=== PATIENT | male | born 1945 | race Caucasian/White ===

== ENCOUNTER 2016-09-24 14:51 | Inpatient (IN) | payer BC, OTHER ==
[~2016-09-24] VITALS: Ht 172.7 cm; Wt 113.2 kg
[~2016-09-24 14:51] MED LIST changes: -AMLO-110 PO; -ASPI81CH2 PO; -ATOR-22 PO; -ATOR10TA88 PO; -BIOF500C2; -CHOL100010 PO; -CYAN100020 PO; -FLUT1AER5 INH; -GLC500 PO; -HYDR25TA5 PO; -INSDGIPEN SC; -LANC-333 TOP; -LPD600 PO; -LPT40 PO; -LSN5 PO; -NTRSLP4 SL; -NVLGIPEN SC; -OMEG10007 PO; -PLV75 PO; -TPRSR/50 PO; -VITACAP26
[2016-09-24] MEDS ORDERED: SODIUM CHLORIDE 0.9% 1000ML 1,000 ML IV STA ×2 (15:04→17:20)
--- NOTE | 2016-09-24 15:17 | EMERGENCY ROOM VISIT NOTE ---
History Report prepared by Charity: Miles Pugh Under the Supervision of: Dr. Rainer Crawford D.O. First contact with patient: 15:00 Chief Complaint: REFERRED BY DOCTOR Stated Complaint: HIGH BLOOD SUGAR, KIDNEY PROBELMS, SENT BY History of Present Illness The patient is a 71 year old male who presents to the Emergency Room with complaints of a referral to the ED for acute hyperglycemia. The patient was seeing Dr. Fisher today for a hypertension check up when his BSG was found to be 480. He was also told that there was something wrong with his kidneys. The patient has been experiencing urinary frequency for two weeks. He also complains dry mouth and nausea. He denies any chest pain, shortness of breath, abdominal pain, rashes or skin itchiness. He has not had any recent illness. The patient takes medications for hypertension, which have not been changed recently. The patient did not take his medications today. The patient has a history of Meckel's diverticulitis. He denies tobacco use and rarely drinks alcohol. Source of History: patient Onset: today Position: other (blood glucose) Symptom Intensity: 480 Quality: other (hyerglycemic) Timing: other (acute) Associated Symptoms: + nausea, + urinary symptoms, No SOB, No abdominal pain , No chest pain, No rash Review of Systems See HPI for pertinent positives & negatives. A total of 10 systems reviewed and were otherwise negative. 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 Social History Smoking Status: Never Smoker Alcohol Use: occasionally Marital Status: Housing Status: lives with significant other Occupation Status: retired Current/Historical Medications Scheduled Atorvastatin (Lipitor), 10 MG PO QPM Cholecalciferol (Vitamin D), 3,000 UNIT PO QAM Fexofenadine Hcl (Hoa), 180 MG PO HS Fish Oil ([place]-3), 2 CAP PO QAM Glucosamine-Chondroitin (Osteo Bi-Flex Regular Str), 2 TABS PO QPM Hydrochlorothiazide (Hydrochlorothiazide), 25 MG PO DAILY Allergies Coded Allergies: No Known Allergies (Unverified , 07/08/16) Physical Exam Vital Signs Date Time Temp Pulse Resp B/P Pulse Ox O2 Delivery O2 Flow Rate FiO2 09/24/16 19:42 85 20 156/89 97 Room Air 09/24/16 18:31 90 20 182/97 97 Room Air 09/24/16 17:23 97 20 149/104 97 Room Air 09/24/16 16:13 99 20 154/90 99 Room Air 09/24/16 16:10 103 09/24/16 14:58 37.0 108 20 162/91 91 Room Air Physical Exam GENERAL: Patient is awake, alert, and in no acute distress. Patient is resting comfortably and showing no signs of anxiety EYES: The conjunctivae are clear. The pupils are round and reactive. EARS, NOSE, MOUTH AND THROAT: The nose is without any evidence of any deformity. Mucous membranes are moist tongue is midline NECK: The neck is nontender and supple. RESPIRATORY: Normal respiratory effort is noted there is no evidence of wheezing rhonchi or rales CARDIOVASCULAR: Tachycardic but regular rhythm, no definite murmurs noted to auscultation. GASTROINTESTINAL: The abdomen is soft. Bowel sounds are present in all quadrants. Abdomen is nontender MUSCULOSKELETAL/EXTREMITIES: There is no evidence of gross deformity full range of motion is noted in the hips and shoulders SKIN: There is no obvious evidence of any rash. There are no petechiae, pallor or cyanosis noted. NEUROLOGIC: Patient is awake alert and oriented x3. Medical Decision & Procedures ER Provider Diagnostic Interpretation: X-ray results as stated below per interpretation by me and the radiologist. CHEST ONE VIEW PORTABLE CLINICAL HISTORY: ABDOMINAL PAIN/GI pain COMPARISON STUDY: 04/10/2010 FINDINGS: The bones soft tissues and hemidiaphragms are normal. The cardiomediastinal silhouette is normal. The lungs are clear. The pulmonary vasculature is normal. IMPRESSION: Negative chest. Electronically signed by: Adis Ng M.D. 09/24/2016 3:44 PM Dictated Date/Time: 09/24/2016 3:44 PM Laboratory Results Test 09/24/16 15:35 09/24/16 15:40 Immature Granulocyte % (Auto) 0.3 % White Blood Count 7.90 K/uL (4.8-10.8) Red Blood Count 5.33 M/uL (4.7-6.1) Hemoglobin 17.1 g/dL (14.0-18.0) Hematocrit 46.5 % (42-52) Mean Corpuscular Volume 87.2 fL (80-100) Mean Corpuscular Hemoglobin 32.1 pg (25-34) Mean Corpuscular Hemoglobin Concent 36.8 g/dl (32-36) Platelet Count 166 K/uL (130-400) Mean Platelet Volume 11.9 fL (7.4-10.4) Neutrophils (%) (Auto) 73.0 % Lymphocytes (%) (Auto) 17.7 % Monocytes (%) (Auto) 7.7 % Eosinophils (%) (Auto) 1.0 % Basophils (%) (Auto) 0.3 % Neutrophils # (Auto) 5.77 K/uL (1.4-6.5) Lymphocytes # (Auto) 1.40 K/uL (1.2-3.4) Monocytes # (Auto) 0.61 K/uL (0.11-0.59) Eosinophils # (Auto) 0.08 K/uL (0-0.5) Basophils # (Auto) 0.02 K/uL (0-0.2) Immature Granulocyte # (Auto) 0.02 K/uL (0.00-0.02) Prothrombin Time 10.2 SECONDS (9.0-12.0) Prothromb Time International Ratio 1.0 (0.9-1.1) Activated Partial Thromboplast Time 26.6 SECONDS (21.0-31.0) Partial Thromboplastin Ratio 1.0 Venous Blood pH 7.38 (7.36-7.41) Venous Blood Partial Pressure CO2 43 mmHg (38.0-50.0) Venous Blood Partial Pressure O2 38 mmHg Venous Blood HCO3 25 mmol/L Venous Blood Oxygen Saturation 70.4 % Venous Blood Base Excess -0.3 mmol/L Estimated Average Glucose 255 mg/dl Hemoglobin A1c 10.5 % (4.5-5.6) Magnesium Level 2.0 mg/dl (1.8-2.4) Total Bilirubin 0.7 mg/dl (0.2-1) Direct Bilirubin 0.2 mg/dl (0-0.2) Aspartate Amino Transf (AST/SGOT) 17 U/L (15-37) Alanine Aminotransferase (ALT/SGPT) 36 U/L (12-78) Alkaline Phosphatase 128 U/L (45-117) Total Creatine Kinase 145 U/L (39-308) Creatine Kinase MB 1.8 ng/ml (0.5-3.6) Creatine Kinase MB Ratio 1.2 (0-3.0) Troponin I < 0.015 ng/ml (0-0.045) Total Protein 6.9 gm/dl (6.4-8.2) Albumin 4.0 gm/dl (3.4-5.0) Triglycerides Level 511 mg/dl (0-150) Amylase Level 39 U/L (25-115) Lipase 357 U/L (73-393) Beta-Hydroxybutyric Acid 24.61 mg/dL (0.2-2.81) Thyroid Stimulating Hormone (TSH) 1.300 uIu/ml (0.300-4.500) Free Thyroxine 1.02 ng/dl (0.80-1.60) Urine Color YELLOW Urine Appearance CLEAR (CLEAR) Urine pH 5.0 (4.5-7.5) Urine Specific [place] 1.029 (1.000-1.030) Urine Protein NEG (NEG) Urine Glucose (UA) 3+ (NEG) Urine Ketones 1+ (NEG) Urine Occult Blood NEG (NEG) Urine Nitrite NEG (NEG) Urine Bilirubin NEG (NEG) Urine Urobilinogen NEG (NEG) Urine Leukocyte Esterase NEG (NEG) Laboratory results per my review. Medications Administered Medications (Trade) Dose Ordered Sig/Cynthia Route Start Time Stop Time Status Last Admin Dose Admin Sodium Chloride 1,000 ml @ 999 mls/hr Q1H1M STAT IV 09/24/16 15:04 09/24/16 16:04 DC 09/24/16 15:04 999 MLS/HR Sodium Chloride (Nss 1000ml) 1,000 ml @ 999 mls/hr Q1H1M STAT IV 09/24/16 17:20 09/24/16 18:21 DC 09/24/16 17:20 999 MLS/HR Insulin Human Regular (novoLIN-R U-100 PER UNIT) 10 units NOW STAT IV 09/24/16 17:44 09/24/16 17:45 DC 09/24/16 18:28 10 UNITS Insulin Aspart (novoLOG ASPART) 10 units ONE ONCE SC 09/24/16 19:15 09/24/16 20:48 DC 09/24/16 21:25 10 UNITS Hydralazine HCl (Apresoline Tab) 10 mg 1956 ONCE PO 09/24/16 19:57 09/24/16 21:13 DC 09/24/16 23:18 10 MG ECG Indication: weakness Rate (beats per minute): 93 Rhythm: normal sinus Findings: no acute ischemic change, no ectopy Change: no significant change (07/08/2016) ED Course 1503: The patient was evaluated in room B11b. A complete history and physical examination were performed. 1504: NSS 1000 ml @ 999 mls/hr. 1610: [facility] We discussed medications and outpatient therapy. 1720: NSS 1000 ml @ 999 mls/hr. 1744: Insulin Human Regular 10 units IV. Medical Decision Prior records/ancillary studies reviewed and summarized above. Nursing notes reviewed. The patient's history was concerning for hyperglycemia. Differential diagnosis: Etiologies such as metabolic, infection, hypo/hyperglycemia, electrolyte abnormalities, cardiac sources, intracerebral event, toxicologic, neurologic, as well as others were entertained. The patient is a 71-year-old male who presented to the emergency department for polyuria and polydipsia. The patient presented to his primary care physician for an evaluation and was sent for laboratory studies. He was called and told to go to the emergency department because his blood sugar was elevated as well as his creatinine. I feel that his creatinine elevation is likely secondary to dehydration. He was treated with IV fluids and IV insulin in emergency department. Repeat laboratory studies did show that this hyperglycemia was worsening as well as his elevation in his creatinine was worsening. I discussed the patient's laboratory and radiographic studies with him. I'm unsure of the exact cause of this patient's onset of diabetes at this time but I did discuss his case with the on-call [facility] group. They felt his blood sugar was significantly elevated and he may not be a good candidate for outpatient management of this condition at this time. I agree with this assessment. I discussed the plan with the patient and he was agreeable to further inpatient management. Consults Time Called: 1600 Consulting Physician: [facility] Returned Call: [phone]: Spoke with [facility]. We discussed medications and outpatient therapy. Impression Primary Impression: Hyperglycemia Additional Impressions: INDERJIT (acute kidney injury) Dehydration Scribe Attestation The scribe's documentation has been prepared under my direction and personally reviewed by me in its entirety. I confirm that the note above accurately reflects all work, treatment, procedures, and medical decision making performed by me. Departure Information Dispostion Being Evaluated By Hospitalist Referrals Rainer Fisher M.D. (PCP) Patient Instructions My [facility] Problem Qualifiers
[2016-09-24] MEDS ORDERED: HYDR25TA5 PO (15:38)
--- NOTE | 2016-09-24 15:45 | DIAGNOSTIC IMAGING REPORT ---
CHEST ONE VIEW PORTABLE CLINICAL HISTORY: ABDOMINAL PAIN/GI pain COMPARISON STUDY: 04/10/2010 FINDINGS: The bones soft tissues and hemidiaphragms are normal. The cardiomediastinal silhouette is normal. The lungs are clear. The pulmonary vasculature is normal. IMPRESSION: Negative chest. Electronically signed by: Adis Ng M.D. 09/24/2016 3:44 PM Dictated Date/Time: 09/24/2016 3:44 PM
[2016-09-24 15:47] LABS: VEN BLD GAS O2 SATURATION 70.4 %; VEN BLOOD GAS BASE EXCESS -0.3 mmol/L
[2016-09-24 15:51] LABS: BASO % 0.3 %; BASO ABS # 0.02 K/uL (0-0.2); COMPLETE YES; HEMATOCRIT 46.5 % (42-52); IG% 0.3 %; LYMPH % 17.7 %; MEAN CELL VOLUME 87.2 fL (80-100); MEAN CORPUSCULAR HEMOGLOBIN 32.1 pg (25-34); MEAN CORPUSCULAR HGB CONC 36.8 g/dl (32-36); MEAN PLATELET VOLUME 11.9 fL (7.4-10.4); MONO % 7.7 %; PLATELET COUNT 166 K/uL (130-400); RED BLOOD COUNT 5.33 M/uL (4.7-6.1)
[2016-09-24 16:05] LABS: URINE APPEARANCE CLEAR (CLEAR); URINE BILIRUBIN NEG (NEG); URINE COLOR YELLOW; URINE NITRITE NEG (NEG); URINE SPECIFIC GRAVITY 1.029 (1.000-1.030); UROBILINOGEN NEG (NEG)
[2016-09-24 16:13] LABS: MANUAL MICROSCOPIC REQUIRED? NO; REVIEW REQ? NO
[2016-09-24 16:20] LABS: PROTHROMBIN TIME (PATIENT) 10.2 SECONDS (9.0-12.0)
[2016-09-24] MEDS ORDERED: OMEG10007 PO (16:57)
[2016-09-24] MEDS ORDERED: CHOL100010 PO (16:57)
[2016-09-24 17:34] LABS: ALKALINE PHOSPHATASE 128 U/L (45-117); ALT/SGPT 36 U/L (12-78); AMYLASE 39 U/L (25-115); AST/SGOT 17 U/L (15-37); BETA-HYDROXYBUTYRATE 24.61 mg/dL (0.2-2.81); BLOOD UREA NITROGEN 22 mg/dl (7-18); CALCIUM 9.1 mg/dl (8.5-10.1); CARBON DIOXIDE 21 mmol/L (21-32); CHLORIDE 94 mmol/L (98-107); CKMB/CK RATIO 1.2 (0-3.0); GLUCOSE 715 mg/dl (70-99); SODIUM 134 mmol/L (136-145)
[2016-09-24] MEDS ORDERED: NovoLIN-R INSULIN PER UNIT CHARGE IV STA (17:44)
[2016-09-24] MEDS ORDERED: ATOR10TA88 PO (17:56)
--- NOTE | 2016-09-24 18:23 | History and Physical ---
History & Physical Date & Time of Service: Sep 24, 2016 at 18:19 Chief Complaint: High Blood Sugar, Kidney Probelms, Sent By Primary Care Physician: Rainer Fisher M.D. History of Present Illness Source: patient, partner Pt is a 71M with a PMHx of Diverticulosis, HLD, HTN and pericarditis that presents from his PCPs office (Dr. Fisher) after an incidental finding of BS >400. The patient presented for a BP check to Dr. Fisher's office. Patient states that over the past two weeks his only complaint was that he's been feeling thirsty and has been drinking COKE to quench his thirst. Chart Review showed an HBA1C in June 2016 of 5.8 and a normal blood sugar in early July 2016. Pt denies any history of diabetes or elevated blood sugar. is at bedside, reports no changes in mental status. ROS: Denies cough, SOB, chest pain, blurry vision, tingling in his LE, gait issues. Pt reports ganing 40lbs since march after quitting tobacco. PMHx/PSHx: Surgical bowel resection for diverticulitis, costochondritis, HLD, HTN. 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 Past Medical/Surgical History Medical Problems: (1) DIVERTICULOSIS COLON (W/O MENT OF HEMORRHAGE) Status: Chronic (2) HYPERLIPIDEMIA NEC/NOS Status: Chronic (3) HYPERTENSION NOS Status: Chronic Family History Patient reports no known family medical history. Social History Smoking Status: Never Smoker Marital Status: Housing status: lives with family Occupational Status: retired Immunizations History of Influenza Vaccine: Yes Influenza Vaccine Date: May 28, 2012 History of Tetanus Vaccine?: UTD History of Pneumococcal: Yes Pneumococcal Date: May 12, 2011 History of Hepatitis B Vaccine: No Multi-Drug Resistant Organisms History of MDRO: No Allergies Coded Allergies: No Known Allergies (Unverified , 07/08/16) Home Medications Scheduled Atorvastatin (Lipitor), 10 MG PO QPM Cholecalciferol (Vitamin D), 3,000 UNIT PO QAM Fexofenadine Hcl (Hoa), 180 MG PO HS Fish Oil ([place]-3), 2 CAP PO QAM Glucosamine-Chondroitin (Osteo Bi-Flex Regular Str), 2 TABS PO QPM Hydrochlorothiazide (Hydrochlorothiazide), 25 MG PO DAILY Review of Systems Constitutional: No chills, No fever Respiratory: No cough, No shortness of breath, No sputum Abdomen: No constipation, No diarrhea, No nausea, No pain, No vomiting Musculoskeletal: No muscle pain Psychiatric: No depression symptoms Physical Exam Vital Signs Date Time Temp Pulse Resp B/P Pulse Ox O2 Delivery O2 Flow Rate FiO2 09/24/16 17:23 97 20 149/104 97 Room Air 09/24/16 16:13 99 20 154/90 99 Room Air 09/24/16 16:10 103 09/24/16 14:58 37.0 108 20 162/91 91 Room Air General Appearance: WD/WN, + obese Respiratory/Chest: chest non-tender, lungs clear, normal breath sounds, no respiratory distress, no accessory muscle use Cardiovascular: regular rate, rhythm, no edema, no gallop, no JVD, no murmur, normal peripheral pulses Abdomen/GI: normal bowel sounds, non tender, soft, no organomegaly, no pulsatile mass Extremities/Musculoskelatal: normal inspection, no calf tenderness, normal capillary refill, no pedal edema Neurologic/Psych: alert, normal mood/affect, normal reflexes, oriented x 3 Diagnostics Laboratory Results Results Past 24 Hours Test 09/24/16 15:00 09/24/16 15:35 09/24/16 15:40 Range/Units Bedside Glucose > 600 70-99 mg/dl White Blood Count 7.90 4.8-10.8 K/uL Red Blood Count 5.33 4.7-6.1 M/uL Hemoglobin 17.1 14.0-18.0 g/dL Hematocrit 46.5 42-52 % Mean Corpuscular Volume 87.2 80-100 fL Mean Corpuscular Hemoglobin 32.1 25-34 pg Mean Corpuscular Hemoglobin Concent 36.8 32-36 g/dl Platelet Count 166 130-400 K/uL Mean Platelet Volume 11.9 7.4-10.4 fL Neutrophils (%) (Auto) 73.0 % Lymphocytes (%) (Auto) 17.7 % Monocytes (%) (Auto) 7.7 % Eosinophils (%) (Auto) 1.0 % Basophils (%) (Auto) 0.3 % Neutrophils # (Auto) 5.77 1.4-6.5 K/uL Lymphocytes # (Auto) 1.40 1.2-3.4 K/uL Monocytes # (Auto) 0.61 0.11-0.59 K/uL Eosinophils # (Auto) 0.08 0-0.5 K/uL Basophils # (Auto) 0.02 0-0.2 K/uL RDW Standard Deviation 41.1 36.4-46.3 fL RDW Coefficient of Variation 12.9 11.5-14.5 % Immature Granulocyte % (Auto) 0.3 % Immature Granulocyte # (Auto) 0.02 0.00-0.02 K/uL Prothrombin Time 10.2 9.0-12.0 SECONDS Prothromb Time International Ratio 1.0 0.9-1.1 Activated Partial Thromboplast Time 26.6 21.0-31.0 SECONDS Partial Thromboplastin Ratio 1.0 Venous Blood pH 7.38 7.36-7.41 Venous Blood Partial Pressure CO2 43 38.0-50.0 mmHg Venous Blood Partial Pressure O2 38 mmHg Venous Blood HCO3 25 mmol/L Venous Blood Oxygen Saturation 70.4 % Venous Blood Base Excess -0.3 mmol/L Sodium Level 134 136-145 mmol/L Chloride Level 94 98-107 mmol/L Carbon Dioxide Level 21 21-32 mmol/L Anion Gap 19.0 3-11 mmol/L Blood Urea Nitrogen 22 7-18 mg/dl Creatinine 1.70 0.60-1.40 mg/dl Est Creatinine Clear Calc Drug Dose 47.2 ml/min Estimated GFR () 45.4 Estimated GFR (Non- 39.1 BUN/Creatinine Ratio 13.0 10-20 Random Glucose 715 70-99 mg/dl Calcium Level 9.1 8.5-10.1 mg/dl Magnesium Level 2.0 1.8-2.4 mg/dl Total Bilirubin 0.7 0.2-1 mg/dl Direct Bilirubin 0.2 0-0.2 mg/dl Aspartate Amino Transf (AST/SGOT) 17 15-37 U/L Alanine Aminotransferase (ALT/SGPT) 36 12-78 U/L Alkaline Phosphatase 128 45-117 U/L Total Creatine Kinase 145 39-308 U/L Creatine Kinase MB 1.8 0.5-3.6 ng/ml Creatine Kinase MB Ratio 1.2 0-3.0 Troponin I < 0.015 0-0.045 ng/ml Total Protein 6.9 6.4-8.2 gm/dl Albumin 4.0 3.4-5.0 gm/dl Triglycerides Level 511 0-150 mg/dl Amylase Level 39 25-115 U/L Lipase 357 73-393 U/L Beta-Hydroxybutyric Acid 24.61 0.2-2.81 mg/dL Thyroid Stimulating Hormone (TSH) 1.300 0.300-4.500 uIu/ml Free Thyroxine 1.02 0.80-1.60 ng/dl Urine Color YELLOW Urine Appearance CLEAR CLEAR Urine pH 5.0 4.5-7.5 Urine Specific [place] 1.029 1.000-1.030 Urine Protein NEG NEG Urine Glucose (UA) 3+ NEG Urine Ketones 1+ NEG Urine Occult Blood NEG NEG Urine Nitrite NEG NEG Urine Bilirubin NEG NEG Urine Urobilinogen NEG NEG Urine Leukocyte Esterase NEG NEG Diagnostic Radiology CHEST ONE VIEW PORTABLE CLINICAL HISTORY: ABDOMINAL PAIN/GI pain COMPARISON STUDY: 04/10/2010 FINDINGS: The bones soft tissues and hemidiaphragms are normal. The cardiomediastinal silhouette is normal. The lungs are clear. The pulmonary vasculature is normal. IMPRESSION: Negative chest. EKG Normal sinus rhythm Normal ECG When compared with ECG of 08-JUL-2016 17:07, Vent. rate has increased BY 34 BPM Impression Assessment and Plan 71M with a PMHx of Diverticulosis, HLD, HTN and viral pericarditis was sent from his PCPs office (Dr. Fisher) after an incidental finding of BS >400 and elevated creatinine. In the ER BS was >700 and creatinine was found to be 1.7 ( baseline 1.1). Patient was started on Lantus 15units daily and Novolog 1unit: 9carb ratio, +SS of 40 units within the range of 140 to 180. s/p 2L NSS bolus in the ER. Hyperosmolar Hyperglycemic State vs DKA 2/2 pt drinking cola to correct his thirst - No history of DM2, not on DM meds at home. HBA1C in June 2016 was 5.8, because of the acute onset nature of this hyperglycemia, we expect quick correction. - Lantus 15units daily and Novolog 1unit:9carb ratio, +SS of 40 units within the range of 140 to 180. - HBA1C pending. Acute Renal Failure Creatinine 1.7 now, baseline is 1.1. Will rehydrate at half normal saline + 20meq KCL at 150ml/hr. Monitor daily BMPs. HTN hold HCTZ Hydralazine 10mg stat, TID PRN if SBP>160 or DBP >100. Continue to monitor. HLD c.w Atorvastatin 10mg c.w Fexofenadine DVT Proph:Lovenox SQ Dispo: Tele, DM2 diet, FULL CODE. Resident Physician Supervision Note: I interviewed and examined the patient. Discussed with Dr. Norman and agree with findings and plan as documented in the note. Any exceptions or clarifications are listed here: None Documented By: Bobo Reyes polydipsia, polyuria for several weeks. gained ~40lbs over the fall; has had recent weight loss during time of polyuria though ros otherwise negative except for as above vitals noted, nad breathing unlabored, no pallor or icterus. labs reviewed. 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 (low threshold to CT eval pancreas if doesn't improve quickly) -for now manage w insulin given ARF, but if continues to behave as a type 2, then will hopefully be able to start metformin once Cr improved -educated on basics, but definitely will need ongoing DM education both from physicians and from RN educator -await A1c - also quite possible that acute highs were from trying to treat dehydration from different cause with soda - creating vicious cycle of worsening dehydration --> hyperglycemia ARF - from hyperglycemic dehydration - fluids, sugar control DVT proph - lovenox HTN - for now hydralazine prn until renal failure corrected otherwise as above Resident Involvement: Resident Care Provided Care Provided: Adult Hospital Medicine
[2016-09-24 18:30] LABS: POTASSIUM 4.6 mmol/L (3.5-5.1)
[2016-09-24] MEDS ORDERED: INSULIN GLARGINE PER UNIT 15 UNITS in SYRINGE 0 ML SC STA (19:09)
[2016-09-24] MEDS ORDERED: POLYETHYLENE (MIRALAX) 17 GM PACK PO PRN (19:15)
[2016-09-24] MEDS ORDERED: ACETAMINOPHEN 325 MG TAB PO PRN (19:15)
[2016-09-24] MEDS ORDERED: INSULIN ASPART 100 UNITS/ML 3 ML PEN SC ONE (19:15)
[2016-09-24] MEDS ORDERED: MAGNESIUM HYDROXIDE SUSP 30 ML UDC PO PRN (19:15)
[2016-09-24] MEDS ORDERED: ONDANSETRON INJ 2 MG/ML 2 ML VIAL IV PRN (19:15)
[2016-09-24] MEDS ORDERED: ALUMINUM/MAGNESIUM/SIMETH (MAALOX MAX) 30 ML UDC PO PRN (19:15)
[2016-09-24] MEDS ORDERED: HydrALAZINE 10 MG TAB PO ONE (19:57)
[2016-09-24] MEDS ORDERED: HydrALAZINE 10 MG TAB PO PRN (20:00)
[2016-09-24] MEDS ORDERED: LANTUS PER UNIT CHARGE SQ ONE (21:15)
[2016-09-24] MEDS: INSULIN ASPART 100 UNITS/ML 3 ML PEN SC SCH (23:08)
[2016-09-24] MEDS: FEXOFENADINE HCL 180 MG TAB PO SCH (23:18)
[2016-09-24] MEDS: ATORVASTATIN 10 MG TAB PO SCH (23:19)
[2016-09-24] MEDS: ENOXAPARIN 40 MG/0.4 ML SYR SC SCH (23:20)
[2016-09-24] MEDS: SODIUM CHLOR 0.45% + 20MEQ KCL 1,000 ML IV SCH (23:21)
[2016-09-25] VITALS (12 sets, daily range): BP systolic 111–157; BP diastolic 51–87; PULSE 62–78; TEMP 36.4–36.7; O2SAT 93–96; BMI 39.2; BMI 39.6
[2016-09-25] MEDS ORDERED: NURSING VERBAL MED ORDER ONE (00:45)
[2016-09-25] MEDS ORDERED: INSULIN ASPART 100 UNITS/ML 3 ML PEN SC SCH (02:00)
[2016-09-25] MEDS: SODIUM CHLOR 0.45% + 20MEQ KCL 1,000 ML IV SCH ×2 (06:12→14:07)
[2016-09-25 06:24] LABS: ESTIMATED AVERAGE GLUCOSE 255 mg/dl; HA1C FLAG Normal (Normal)
[2016-09-25 06:30] LABS: HEMATOCRIT 39.7 % (42-52); MEAN CELL VOLUME 86.7 fL (80-100); MEAN CORPUSCULAR HEMOGLOBIN 31.2 pg (25-34); MEAN PLATELET VOLUME 11.7 fL (7.4-10.4); PLATELET COUNT 125 K/uL (130-400); RED BLOOD COUNT 4.58 M/uL (4.7-6.1)
[2016-09-25 06:52] LABS: BUN/CREATININE RATIO 15.3 (10-20); CALCIUM 8.1 mg/dl (8.5-10.1); POTASSIUM 3.6 mmol/L (3.5-5.1)
[2016-09-25] MEDS: OMEGA-3 (PURIFIED FISH OIL) 1 GM CAP PO SCH (07:59)
[2016-09-25] MEDS: CHOLECALCIFEROL 1000 INTER.UNIT TAB PO SCH (07:59)
[2016-09-25] MEDS: INSULIN ASPART 100 UNITS/ML 3 ML PEN SC SCH ×4 (08:00→21:30)
--- NOTE | 2016-09-25 14:56 | Progress Note ---
Subjective Date of Service: Sep 25, 2016. Subjective Pt evaluation today including: conversation w/ patient, conversation w/ family , physical exam, chart review, lab review, review of studies, conversation w/ financial services consultant, review of inpatient medication list Pleasant, conversational, out of bed to chair, no chest pain, nurse reported blood glucose at around 300 Problem List Medical Problems: (1) INDERJIT (acute kidney injury) Status: Acute (2) Dehydration Status: Acute (3) Hyperglycemia Status: Acute (4) Hypertension Status: Acute Review of Systems Constitutional: No chills, No fatigue, No fever, No problem reported, No sweats , No weakness, No weight loss Eyes: No diplopia, No discharge, No eye pain, No redness, No worsening of vision ENT: No dental problems, No hearing loss, No nasal symptoms, No sore throat, No tinnitus, No trouble swallowing, No unusual epistaxis Respiratory: No cough, No dyspnea at rest, No dyspnea on exertion, No hemoptysis, No shortness of breath, No sputum, No wheezing Cardiac: No PND, No chest pain, No claudication, No edema, No orthopnea, No palpitations Abdomen: No constipation, No diarrhea, No nausea, No pain, No vomiting Musculoskeletal: No calf pain, No joint pain, No muscle pain, No swelling Male : No dysuria, No hematuria, No incontinence, No nocturia more than once/ night, No slowing stream, No urinary frequency Neurologic: No balance problems, No memory loss, No numbness/tingling, No paralysis, No vertigo, No weakness Psychiatric: No anhedonism, No anxiety, No depression symptoms, No insomnia, No substance abuse Heme: No abnormal bleeding/bruising, No clotting problems, No night sweats, No swollen lymph nodes Endo: No excessive thirst, No excessive urination, No fatigue Skin: No bleeding, No color change, No itch, No new/changing skin lesions, No rash Objective Vital Signs Date Time Temp Pulse Resp B/P Pulse Ox O2 Delivery O2 Flow Rate FiO2 09/25/16 12:00 96 Room Air 09/25/16 11:30 36.6 62 20 138/71 96 Room Air 09/25/16 08:59 36.7 72 18 144/70 94 Room Air 09/25/16 08:00 95 Room Air 09/25/16 08:00 Room Air 09/25/16 07:38 36.4 65 16 157/87 95 Room Air 09/25/16 04:00 Room Air 09/25/16 04:00 36.6 70 18 122/51 95 Room Air 09/25/16 03:59 60 09/25/16 00:11 74 09/25/16 00:00 36.7 78 18 111/71 93 Room Air 09/24/16 21:27 98 20 156/89 99 09/24/16 20:08 97 09/24/16 19:42 85 20 156/89 97 Room Air 09/24/16 18:31 90 20 182/97 97 Room Air 09/24/16 17:23 97 20 149/104 97 Room Air 09/24/16 16:13 99 20 154/90 99 Room Air 09/24/16 16:10 103 09/24/16 14:58 37.0 108 20 162/91 91 Room Air Physical Exam General Appearance: WD/WN, no apparent distress, + obese Eyes: normal inspection, PERRL, EOMI, sclerae normal ENT: normal ENT inspection, hearing grossly normal, pharynx normal Neck: supple, no adenopathy, thyroid normal, no JVD, no carotid bruits, trachea midline Respiratory/Chest: chest non-tender, lungs clear, normal breath sounds, no respiratory distress, no accessory muscle use Cardiovascular: regular rate, rhythm, no edema, no gallop, no JVD, no murmur Abdomen: normal bowel sounds, non tender, soft, no organomegaly, no pulsatile mass Extremities: normal range of motion, non-tender, normal inspection, no pedal edema, no calf tenderness, normal capillary refill, pelvis stable Neurologic/Psychiatric: group burner machine II-XII nml as tested, no motor/sensory deficits, alert, normal mood/affect, oriented x 3 Skin: normal color, warm/dry, no rash Lymphatic: no adenopathy Laboratory Results Last 24 Hours Test 09/24/16 15:00 09/24/16 15:35 09/24/16 15:40 09/24/16 19:45 Bedside Glucose > 600 mg/dl 432 mg/dl White Blood Count 7.90 K/uL Red Blood Count 5.33 M/uL Hemoglobin 17.1 g/dL Hematocrit 46.5 % Mean Corpuscular Volume 87.2 fL Mean Corpuscular Hemoglobin 32.1 pg Mean Corpuscular Hemoglobin Concent 36.8 g/dl Platelet Count 166 K/uL Mean Platelet Volume 11.9 fL Neutrophils (%) (Auto) 73.0 % Lymphocytes (%) (Auto) 17.7 % Monocytes (%) (Auto) 7.7 % Eosinophils (%) (Auto) 1.0 % Basophils (%) (Auto) 0.3 % Neutrophils # (Auto) 5.77 K/uL Lymphocytes # (Auto) 1.40 K/uL Monocytes # (Auto) 0.61 K/uL Eosinophils # (Auto) 0.08 K/uL Basophils # (Auto) 0.02 K/uL RDW Standard Deviation 41.1 fL RDW Coefficient of Variation 12.9 % Immature Granulocyte % (Auto) 0.3 % Immature Granulocyte # (Auto) 0.02 K/uL Prothrombin Time 10.2 SECONDS Prothromb Time International Ratio 1.0 Activated Partial Thromboplast Time 26.6 SECONDS Partial Thromboplastin Ratio 1.0 Venous Blood pH 7.38 Venous Blood Partial Pressure CO2 43 mmHg Venous Blood Partial Pressure O2 38 mmHg Venous Blood HCO3 25 mmol/L Venous Blood Oxygen Saturation 70.4 % Venous Blood Base Excess -0.3 mmol/L Sodium Level 134 mmol/L Potassium Level 4.6 mmol/L Chloride Level 94 mmol/L Carbon Dioxide Level 21 mmol/L Anion Gap 19.0 mmol/L Blood Urea Nitrogen 22 mg/dl Creatinine 1.70 mg/dl Est Creatinine Clear Calc Drug Dose 47.2 ml/min Estimated GFR () 45.4 Estimated GFR (Non- 39.1 BUN/Creatinine Ratio 13.0 Random Glucose 715 mg/dl Estimated Average Glucose 255 mg/dl Hemoglobin A1c 10.5 % Calcium Level 9.1 mg/dl Magnesium Level 2.0 mg/dl Total Bilirubin 0.7 mg/dl Direct Bilirubin 0.2 mg/dl Aspartate Amino Transf (AST/SGOT) 17 U/L Alanine Aminotransferase (ALT/SGPT) 36 U/L Alkaline Phosphatase 128 U/L Total Creatine Kinase 145 U/L Creatine Kinase MB 1.8 ng/ml Creatine Kinase MB Ratio 1.2 Troponin I < 0.015 ng/ml Total Protein 6.9 gm/dl Albumin 4.0 gm/dl Triglycerides Level 511 mg/dl Amylase Level 39 U/L Lipase 357 U/L Beta-Hydroxybutyric Acid 24.61 mg/dL Thyroid Stimulating Hormone (TSH) 1.300 uIu/ml Free Thyroxine 1.02 ng/dl Urine Color YELLOW Urine Appearance CLEAR Urine pH 5.0 Urine Specific [place] 1.029 Urine Protein NEG Urine Glucose (UA) 3+ Urine Ketones 1+ Urine Occult Blood NEG Urine Nitrite NEG Urine Bilirubin NEG Urine Urobilinogen NEG Urine Leukocyte Esterase NEG Test 09/24/16 23:05 09/25/16 02:03 09/25/16 05:54 09/25/16 07:27 Bedside Glucose 385 mg/dl 228 mg/dl 214 mg/dl White Blood Count 5.70 K/uL Red Blood Count 4.58 M/uL Hemoglobin 14.3 g/dL Hematocrit 39.7 % Mean Corpuscular Volume 86.7 fL Mean Corpuscular Hemoglobin 31.2 pg Mean Corpuscular Hemoglobin Concent 36.0 g/dl RDW Standard Deviation 40.7 fL RDW Coefficient of Variation 12.8 % Platelet Count 125 K/uL Mean Platelet Volume 11.7 fL Sodium Level 143 mmol/L Potassium Level 3.6 mmol/L Chloride Level 108 mmol/L Carbon Dioxide Level 24 mmol/L Anion Gap 11.0 mmol/L Blood Urea Nitrogen 15 mg/dl Creatinine 1.00 mg/dl Est Creatinine Clear Calc Drug Dose 82.1 ml/min Estimated GFR () 86.2 Estimated GFR (Non- 74.3 BUN/Creatinine Ratio 15.3 Random Glucose 206 mg/dl Calcium Level 8.1 mg/dl Test 09/25/16 11:32 Bedside Glucose 297 mg/dl Assessment and Plan 71-year-old white male, admitted on 09/24/2016 because of new onset DM and acute renal failure Uncontrolled diabetic with HbA1c on 10.5, with newly identified Likely is type II diabetic Has extensive diabetic education, started Lantus 15 units subcutaneous daily at bedtime, and insulin sliding scale with correction factors and card count Discussed with the patient's and daughter about the importance of diabetic control Acute renal failure because of dehydration's from polyuria Totally resolved, Will follow-up Hypertriglyceridemia, tg > 500 upon admission, he was not fasting Will check fasting lipid panel tomorrow Has consult of lifestyle modification, start Lopid if repeated triglycerides IS still high DVT proph - lovenox Continued [facility] stay due to: home environment unsafe for pt Discharge planning: home
[2016-09-25] MEDS ORDERED: GLUCAGON FOR INJ 1 MG VIAL SQ PRN (15:00)
[2016-09-25] MEDS ORDERED: DEXTROSE 50% 50 ML SYR IV PRN (15:00)
[2016-09-25] MEDS ORDERED: GLUCOSE 10 TABS/TUBE PO PRN (15:00)
[2016-09-25] MEDS ORDERED: GLUCOSE 40% GEL 15 GM TUBE PO PRN (15:00)
[2016-09-25] MEDS ORDERED: INSULIN GLARGINE SOLOSTAR 100 UNITS/ML 3 ML PEN SC SCH (21:00)
[2016-09-25] MEDS: FEXOFENADINE HCL 180 MG TAB PO SCH (21:33)
[2016-09-25] MEDS: ATORVASTATIN 10 MG TAB PO SCH (21:33)
[2016-09-25] MEDS: ENOXAPARIN 40 MG/0.4 ML SYR SC SCH (21:34)
[2016-09-26 04:05] VITALS: BP 113/84; PULSE 68; TEMP 36.4; O2SAT 95
[2016-09-26 05:54] LABS: HEMATOCRIT 42.2 % (42-52); MEAN CELL VOLUME 85.3 fL (80-100); MEAN CORPUSCULAR HEMOGLOBIN 30.3 pg (25-34); MEAN CORPUSCULAR HGB CONC 35.5 g/dl (32-36); MEAN PLATELET VOLUME 11.3 fL (7.4-10.4); PLATELET COUNT 124 K/uL (130-400); RED BLOOD COUNT 4.95 M/uL (4.7-6.1); WHITE BLOOD COUNT 5.55 K/uL (4.8-10.8)
[2016-09-26 06:20] LABS: BUN/CREATININE RATIO 12.1 (10-20); POTASSIUM 3.7 mmol/L (3.5-5.1)
[2016-09-26 06:35] LABS: CHOLESTEROL/HDL RATIO 6.3
[2016-09-26 07:35] VITALS: BP 146/87; PULSE 71; TEMP 36.5; O2SAT 94
[2016-09-26] MEDS: INSULIN ASPART 100 UNITS/ML 3 ML PEN SC SCH ×2 (07:43→11:41)
[2016-09-26] MEDS: OMEGA-3 (PURIFIED FISH OIL) 1 GM CAP PO SCH (07:44)
[2016-09-26] MEDS: CHOLECALCIFEROL 1000 INTER.UNIT TAB PO SCH (07:45)
[2016-09-26] MEDS ORDERED: INSDGIPEN SC (08:50)
[2016-09-26] MEDS ORDERED: NVLGIPEN SC (08:50)
[2016-09-26] MEDS ORDERED: LPD600 PO (08:50)
[2016-09-26] MEDS ORDERED: LANC-333 TOP (08:50)
[2016-09-26] MEDS ORDERED: GLC500 PO (08:50)
--- NOTE | 2016-09-26 08:52 | Discharge Instructions ---
Discharge Instructions Admission Reason for Admission: Diabetes Mellitus With Hyperosmolarity Without Discharge Discharge Diagnosis / Problem: new dx DM, hyperglycemia Discharge Goals Goal(s): Decrease discomfort, Improve function, Increase independence, Improve disease control, Improve nutritional status, Learn about illness, Diagnostic testing, Therapeutic intervention, Prevent Disease Progression, Specific goals Activity Recommendations Activity Limitations: resume your previous activity Exercise/Sports Limitations: as tolerated May Resume Sexual Activity: when tolerated Driving or Machine Use: no limitations . Instructions / Follow-Up Instructions / Follow-Up you have new diagnosis DM and acute renal failure we had extensive diabetic treatment discussion, started Lantus 15 units subcutaneous daily at bedtime, and insulin sliding scale recommended in below you need to watch for lifestyle I hold your Lipitor, and started Lopid for your hypertriglyceridemia you need to follow up with pcp for all of your medical condition in 3-5 days, SUBCUTANEOUSLY, BEFORE MEALS & AT BEDTIME 0 unit when BG between 130 to 150 1 unit when BG between 151 to 170 2 unit when BG between 171 to 190 3 unit when BG between 191 to 210 4 unit when BG between 210 to 230 5 unit when BG between 231 to 250 6 unit when BG between 251 to 270 8 unit when BG between 271 to 290 10 unit when BG between 291 to 310 12 unit when BG between 331 to 350 14 unit when BG between 351 to 370, and call MD - take medication as instructed, never overdose or any misuse, or take with alcohol, because misuse of medicine may cause organ damage or , call your primary care physician if have questions of medicaitons. - call your primary care physician OR go to local emergency room if has any fever/chill, chest pain, shortness of breathing, nausea/vomiting/abdominal pain , facial droop/slurry speech/local weakness, or if has any questions. - fall precaution - diet as instructed - you should understand that it is important to follow up the above instruction , and "not following the above instruction" may cause delayed or missed care of your medical conditions which may cause permanent organ damage and even . Current Hospital Diet Patient's current hospital diet: Diabetes Type 2 Diet Discharge Diet Recommended Diet: Diabetes Type 2 Diet Pending Studies Studies pending at discharge: no Laboratory Results Hemoglobin A1c Test 09/24/16 15:35 Range/Units Estimated Average Glucose 255 mg/dl Hemoglobin A1c 10.5 H 4.5-5.6 % Lipid Panel Test 09/26/16 05:31 Range/Units Triglycerides Level 638 H 0-150 mg/dl Cholesterol Level 203 H 0-200 mg/dl HDL Cholesterol 32 mg/dl Cholesterol/HDL Ratio 6.3 LDL Cholesterol, Calculated mg/dl Medical Emergencies . Who to Call and When: Medical Emergencies: If at any time you feel your situation is an emergency, please call 911 immediately. . Non-Emergent Contact Non-Emergency issues call your: Primary Care Provider . . "Provider Documentation" section prepared by Mike Tuttle. VTE Core Measure Inpt VTE Proph given/why not?: Enoxaparin (Lovenox)SQ
[2016-09-26] MEDS ORDERED: GEMFIBROZIL 600 MG TAB PO SCH (09:00)
[2016-09-26] MEDS ORDERED: METFORMIN HCL 500 MG TAB PO SCH (09:00)
--- NOTE | 2016-09-26 09:20 | Discharge Summary ---
Discharge Summary Date of Service Sep 26, 2016. Discharge Summary Admission Date: Sep 24, 2016 at 19:57 Discharge Date: Sep 26, 2016 Discharge Disposition: Home Principal Diagnosis: new diagnosed uncontrolled diabetic, Problems/Secondary Diagnoses: Hyperglycemia, acute kidney failure Immunizations: Have You Had Influenza Vaccine: Yes Influenza Vaccine Date: May 28, 2012 History of Tetanus Vaccine?: UTD History of Pneumococcal: Yes Pneumococcal Date: May 12, 2011 History of Hepatitis B Vaccine: No Procedures: No Consultations: No Medication Reconciliation New Medications: Lancets (Freestyle Lancets) 1 Mis Mis 1 EA TOP QID for 90 Days, #400 EA 3 Refills Gemfibrozil (Gemfibrozil) 600 Mg Tab 600 MG PO BID for 30 Days, #60 TAB Insulin Aspart (Novolog Flexpen) 100 Units/Ml Inj 0 UNITS SC ACHS for 30 Days SUBCUTANEOUSLY, BEFORE MEALS & AT BEDTIME 0 unit when BG between 130 to 150 1 unit when BG between 151 to 170 2 unit when BG between 171 to 190 3 unit when BG between 191 to 210 4 unit when BG between 210 to 230 5 unit when BG between 231 to 250 6 unit when BG between 251 to 270 8 unit when BG between 271 to 290 10 unit when BG between 291 to 310 12 unit when BG between 331 to 350 14 unit when BG between 351 to 370, and call Insulin Glargine (Lantus Solostar) 100 Unit/Ml Inj 15 UNIT SC HS for 30 Days Metformin HCl (Metformin HCl) 500 Mg Tab 500 MG PO BIDM for 30 Days, TAB Continued Medications: Cholecalciferol (Vitamin D) 1,000 Unit Tab 3000 UNIT PO QAM Fexofenadine Hcl (Hoa) 180 Mg Tab 180 MG PO HS, TAB Fish Oil ([place]-3) 1 Ea Cap 2 CAP PO QAM, CAP Glucosamine-Chondroitin (Osteo Bi-Flex Regular Str) 1 Tab Tab 2 TABS PO QPM Hydrochlorothiazide (Hydrochlorothiazide) 25 Mg Tab 25 MG PO DAILY, #90 Discontinued Medications: Atorvastatin (Lipitor) 10 Mg Tab 10 MG PO QPM, 0 Refills Discharge Exam Doing well up and walk, eating and drinking okay, no complaining , blood glucose around 200 Review of Systems: Constitutional: No chills, No fatigue, No fever, No problem reported, No sweats, No weakness, No weight loss Eyes: No diplopia, No discharge, No eye pain, No problem reported, No redness, No worsening of vision ENT: No dental problems, No hearing loss, No nasal symptoms, No problem reported, No sore throat, No tinnitus, No trouble swallowing, No unusual epistaxis Respiratory: No cough, No dyspnea at rest, No dyspnea on exertion, No hemoptysis, No problem reported, No shortness of breath, No sputum, No wheezing Cardiovascular: No PND, No chest pain, No claudication, No edema, No orthopnea, No palpitations, No problem reported Abdomen: No GI bleeding, No constipation, No diarrhea, No nausea, No pain, No problem reported, No vomiting Musculoskeletal: No calf pain, No joint pain, No muscle pain, No problem reported, No swelling Genitourinary - Male: No dysuria, No hematuria, No impotence, No lesions, No penile discharge, No problem reported, No urinary frequency, No urinary hesitancy, No urinary incontinence, No urinary retention, No urinary urgency Neurologic: No balance problems, No memory loss, No numbness/tingling, No paralysis, No problem reported, No vertigo, No weakness Psychiatric: No anhedonism, No anxiety, No depression symptoms, No insomnia , No problem reported, No substance abuse Endocrine: No excessive thirst, No excessive urination, No fatigue, No problem reported Integumentary: No bleeding, No color change, No itch, No new/changing skin lesions, No problem reported, No rash Physical Exam: General Appearance: WD/WN, + obese Eyes: normal inspection, PERRL ENT: normal ENT inspection, hearing grossly normal Neck: supple, no adenopathy Respiratory/Chest: chest non-tender, normal breath sounds, no respiratory distress, + decreased breath sounds Cardiovascular: regular rate, rhythm, no edema Abdomen / GI: normal bowel sounds, non tender, soft, no organomegaly Extremities: normal inspection, no calf tenderness, normal capillary refill Neurologic/Psychiatric: healthcare technician II-XII nml as tested, no motor/sensory deficits , alert Skin: normal color, warm/dry Hospital Course 71-year-old white male, admitted on 09/24/2016 because of new onset DM and acute renal failure Uncontrolled diabetic with HbA1c on 10.5, with newly identified Likely is type II diabetic Has extensive diabetic education, started Lantus 15 units subcutaneous daily at bedtime, and insulin sliding scale with correction factors and card count Discussed with the patient's and daughter about the importance of diabetic control Start metformin 500 mg by mouth twice a day because of totally resolved of acute kidney failure and lab has been stable for 2 days I also give introduction of insulin sliding scale and give prescription Acute renal failure because of dehydration's from polyuria Totally resolved, Will follow-up Hypertriglyceridemia, tg > 500 upon admission, he was not fasting Recheck fasting lipid panel which was more than 600 Patient was on Lipitor at home, I hold it for now, start Lopid by mouth twice a day PCP please adjust the medication for dyslipidemia DVT proph - lovenox Instructions / Follow-Up you have new diagnosis DM and acute renal failure we had extensive diabetic treatment discussion, started Lantus 15 units subcutaneous daily at bedtime, and insulin sliding scale recommended in below you need to watch for lifestyle I hold your Lipitor, and started Lopid for your hypertriglyceridemia you need to follow up with pcp for all of your medical condition in 3-5 days, SUBCUTANEOUSLY, BEFORE MEALS & AT BEDTIME 0 unit when BG between 130 to 150 1 unit when BG between 151 to 170 2 unit when BG between 171 to 190 3 unit when BG between 191 to 210 4 unit when BG between 210 to 230 5 unit when BG between 231 to 250 6 unit when BG between 251 to 270 8 unit when BG between 271 to 290 10 unit when BG between 291 to 310 12 unit when BG between 331 to 350 14 unit when BG between 351 to 370, and call MD - take medication as instructed, never overdose or any misuse, or take with alcohol, because misuse of medicine may cause organ damage or , call your primary care physician if have questions of medicaitons. - call your primary care physician OR go to local emergency room if has any fever/chill, chest pain, shortness of breathing, nausea/vomiting/abdominal pain , facial droop/slurry speech/local weakness, or if has any questions. - fall precaution - diet as instructed - you should understand that it is important to follow up the above instruction , and "not following the above instruction" may cause delayed or missed care of your medical conditions which may cause permanent organ damage and even . Total Time Spent: Greater than 30 minutes This includes examination of the patient, discharge planning, medication reconciliation, and communication with other providers. Discharge Instructions Please refer to the electronic Patient Visit Report (Discharge Instructions) for additional information. Additional Copies To Rainer Fisher M.D.
[2016-09-26 11:56] VITALS: BP 146/87; PULSE 71; TEMP 36.5; O2SAT 94
[2016-09-26 12:17] VITALS: Ht 172.7 cm; Wt 113.2 kg
[2017-03-22] MEDS ORDERED: LPT40 PO (11:14)
[2017-03-22] MEDS ORDERED: PLV75 PO (11:14)
[2017-03-22] MEDS ORDERED: LSN5 PO (11:14)
[2017-03-22] MEDS ORDERED: NTRSLP4 SL (11:14)
== END 2016-09-26 12:30 | disposition home or self-care (01) | DRG 682 ==
LOC: ENRESERVDT → ENRESERVTM → C.EDB 14:52 → C.EDINP 19:57 → C.2E 09-25 09:01
PROVIDERS: ADMIT Family Medicine; ATTEND Hospitalist
DX: N17.9 Acute kidney failure, unspecified (principal); E11.00 Type 2 diabetes mellitus with hyperosmolarity without nonketotic hyperglycemic-hyperosmolar coma (NKHHC); E11.65 Type 2 diabetes mellitus with hyperglycemia; E86.0 Dehydration; E78.1 Pure hyperglyceridemia; E78.5 Hyperlipidemia, unspecified; I10 Essential (primary) hypertension; Z79.899 Other long term (current) drug therapy

== ENCOUNTER → 2016-09-24 | Outpatient (CLI) | payer BC ==
[~2016-09-24] MED LIST: AMLO-110 PO; ASPI81CH2 PO; ATOR-22 PO; ATOR10TA88 PO; BIOF500C2; CHOL100010 PO; CYAN100020 PO; FEXO1TAB46 PO; FLUT1AER5 INH; GLC500 PO; GLUCTAB18 PO; HYDR25TA5 PO; INSDGIPEN SC; LANC-333 TOP; LPD600 PO; LPT40 PO; LSN5 PO; NTRSLP4 SL; NVLGIPEN SC; OMEG10007 PO; PLV75 PO; TPRSR/50 PO; VITACAP26
[2016-09-24 12:56] LABS: BLOOD UREA NITROGEN 21 mg/dl (7-18); BUN/CREATININE RATIO 14.2 (10-20); CALCIUM 9.5 mg/dl (8.5-10.1); CARBON DIOXIDE 23 mmol/L (21-32); CHLORIDE 97 mmol/L (98-107); GLUCOSE 410 mg/dl (70-99); POTASSIUM 3.6 mmol/L (3.5-5.1); SODIUM 135 mmol/L (136-145)
[2016-09-24 13:13] LABS: BETA-HYDROXYBUTYRATE 24.25 mg/dL (0.2-2.81)
== END | disposition home or self-care (01) ==
LOC: C.LAB1850 10:35
PROVIDERS: ATTEND Internal Medicine
DX: I10 Essential (primary) hypertension (principal)

== ENCOUNTER → 2016-10-11 | Outpatient (CLI) | payer BC ==
[~2016-10-11] MED LIST changes: +AMLO-110 PO; +ASPI81CH2 PO; +ATOR-22 PO; +BIOF500C2; +CHOL100010 PO; +CYAN100020 PO; +FLUT1AER5 INH; +GLC500 PO; +HYDR25TA5 PO; +INSDGIPEN SC; +LANC-333 TOP; +LPD600 PO; +LPT40 PO; +LSN5 PO; +NTRSLP4 SL; +NVLGIPEN SC; +OMEG10007 PO; +PLV75 PO; +TPRSR/50 PO; +VITACAP26
[2016-10-11 10:32] LABS: ALT/SGPT 37 U/L (12-78); AST/SGOT 25 U/L (15-37); BLOOD UREA NITROGEN 12 mg/dl (7-18); BUN/CREATININE RATIO 9.7 (10-20); CALCIUM 9.3 mg/dl (8.5-10.1); CARBON DIOXIDE 27 mmol/L (21-32); CHLORIDE 106 mmol/L (98-107); GLUCOSE 88 mg/dl (70-99); POTASSIUM 4.3 mmol/L (3.5-5.1); SODIUM 142 mmol/L (136-145)
[2016-10-11 10:35] LABS: ALB/GLOB RATIO 1.1 (0.9-2); ALKALINE PHOSPHATASE 62 U/L (45-117); CHOLESTEROL 193 mg/dl (0-200); CHOLESTEROL/HDL RATIO 3.3; HDL CHOLESTEROL 59 mg/dl; LDL CHOLESTEROL CALCULATED 106 mg/dl; TRIGLYCERIDES 139 mg/dl (0-150); VERY LOW DENSITY LIPOPROT CALC 28 mg/dl
== END | disposition home or self-care (01) ==
LOC: C.LAB1850 08:56
PROVIDERS: ATTEND Internal Medicine
DX: E11.9 Type 2 diabetes mellitus without complications (principal)

== ENCOUNTER → 2017-01-03 | Outpatient (CLI) | payer BC ==
[2017-01-03 12:31] LABS: ESTIMATED AVERAGE GLUCOSE 111 mg/dl; HA1C FLAG Normal (Normal)
[2017-01-03 12:32] LABS: ALT/SGPT 35 U/L (12-78); BLOOD UREA NITROGEN 13 mg/dl (7-18); BUN/CREATININE RATIO 13.4 (10-20); CARBON DIOXIDE 27 mmol/L (21-32); CHLORIDE 106 mmol/L (98-107); GLUCOSE 83 mg/dl (70-99); POTASSIUM 4.4 mmol/L (3.5-5.1); SODIUM 141 mmol/L (136-145)
[2017-01-03 12:35] LABS: ALB/GLOB RATIO 1.2 (0.9-2); ALKALINE PHOSPHATASE 55 U/L (45-117); AST/SGOT 19 U/L (15-37)
[2017-01-03 12:39] LABS: CALCIUM 8.7 mg/dl (8.5-10.1)
[2017-01-03 12:57] LABS: RATIO 60.4 mcg/mg (0-30.0)
== END | disposition home or self-care (01) ==
LOC: C.LAB1850 09:39
PROVIDERS: ATTEND Internal Medicine
DX: E11.9 Type 2 diabetes mellitus without complications (principal); M81.0 Age-related osteoporosis without current pathological fracture

== ENCOUNTER → 2017-01-06 | Outpatient (CLI) | payer BC ==
[~2017-01-06] VITALS: Ht 174 cm; Wt 102.4 kg
[2017-01-06 15:26] VITALS: BP 133/81; PULSE 63; Ht 174 cm; Wt 102.4 kg
== END | disposition home or self-care (01) ==
LOC: C.NEUR 14:15
PROVIDERS: ATTEND Physician Assistant
DX: G47.61 Periodic limb movement disorder (principal); G47.30 Sleep apnea, unspecified

== ENCOUNTER 2017-03-21 07:00 | Observation (INO) | payer BC ==
[2017-03-21] VITALS (15 sets, daily range): BP systolic 113–148; BP diastolic 66–85; PULSE 58–82; TEMP 36.4–36.8; O2SAT 93–97; Ht 172.7 cm; Wt 88.9 kg
[~2017-03-21] VITALS: Ht 172.7 cm; Wt 88.9 kg
[~2017-03-21 07:00] MED LIST changes: -AMLO-110 PO; -ASPI81CH2 PO; -ATOR-22 PO; -BIOF500C2; -CYAN100020 PO; -FLUT1AER5 INH; -LPT40 PO; -LSN5 PO; -NTRSLP4 SL; -PLV75 PO; -TPRSR/50 PO; -VITACAP26
[2017-03-21] MEDS ORDERED: TPRSR/50 PO (07:02)
[2017-03-21] MEDS ORDERED: ASPI81CH2 PO (07:02)
[2017-03-21] MEDS ORDERED: BIOF500C2 (07:02)
[2017-03-21] MEDS ORDERED: AMLO-110 PO (07:02)
[2017-03-21] MEDS ORDERED: ATOR-22 PO (07:02)
[2017-03-21] MEDS ORDERED: FLUT1AER5 INH (07:02)
[2017-03-21] MEDS ORDERED: CYAN100020 PO (07:02)
[2017-03-21] MEDS ORDERED: VITACAP26 (07:02)
[2017-03-21 07:44] LABS: MEAN CELL VOLUME 87.8 fL (80-100); MEAN CORPUSCULAR HEMOGLOBIN 31.3 pg (25-34); MEAN PLATELET VOLUME 11.1 fL (7.4-10.4); PLATELET COUNT 162 K/uL (130-400); RED BLOOD COUNT 5.24 M/uL (4.7-6.1); WHITE BLOOD COUNT 8.02 K/uL (4.8-10.8)
[2017-03-21 07:52] LABS: MEAN CORPUSCULAR HGB CONC 35.7 g/dl (32-36)
[2017-03-21 08:11] LABS: BUN/CREATININE RATIO 18.5 (10-20); CALCIUM 8.9 mg/dl (8.5-10.1); CREATININE 1.1 mg/dl (0.60-1.40); POTASSIUM 3.8 mmol/L (3.5-5.1)
--- NOTE | 2017-03-21 08:28 | Procedure Note ---
Pre-Mod Sedation Assessment General Date of Moderate Sedation: Mar 21, 2017. Vital Signs: Vital Signs Past 12 Hours Date Time Temp Pulse Resp B/P (MAP) Pulse Ox O2 Delivery O2 Flow Rate FiO2 03/21/17 07:17 36.8 82 16 148/85 96 Room Air Review Cardiovascular: regular rate, rhythm, no edema, no gallop, no JVD, normal peripheral pulses, + systolic murmur Abdomen: normal bowel sounds, non tender, soft Lungs: lungs clear Pre-Sedation Airway Assessment Oral Cavity: Dentures Able to Visualize Vocal Cords: No Short Thick Neck: No Hx of Sleep Apnea: Yes Smoking Status: Never Smoker Mallampati Classification: Class III ASA Classification: Class II Procedure Planning Contraindications-for Mod Sed: None Yes Notes The planned sedation has been discussed with the patient and consent obtained. I have identified the patient, determined the appropriateness of sedation and have assessed the patient immediately prior to the procedure. All medicine(s) and interventions are by my order.
[2017-03-21] MEDS ORDERED: HEPARIN SOD (PORCINE) 1000 UNIT/ML 10 ML VIAL ONE ×2 (08:30→09:23)
[2017-03-21] MEDS ORDERED: MIDAZOLAM HCL 1 MG/ML 2ML VIAL ONE (08:30)
[2017-03-21] MEDS ORDERED: FENTANYL CITRATE INJ 50 MCG/1 ML 2 ML VIAL ONE (08:30)
[2017-03-21] MEDS ORDERED: NiCARDipine HCL INJ 2.5 MG/ML 10 ML AMP ONE (08:30)
[2017-03-21] MEDS ORDERED: NITROGLYCERIN/D5W 100MCG/ML 20ML SYR ONE (08:31)
[2017-03-21] MEDS ORDERED: CLOPIDOGREL BISULFATE 300 MG TAB PO ONE (10:05)
[2017-03-21] MEDS ORDERED: ONDANSETRON INJ 2 MG/ML 2 ML VIAL IV PRN (10:30)
[2017-03-21] MEDS ORDERED: NITROGLYCERIN 0.4 MG SL PER TAB CHARGE SL PRN (10:30)
[2017-03-21] MEDS ORDERED: MoRPHine SULFATE 2 MG/ML CARP IV PRN (10:30)
[2017-03-21] MEDS ORDERED: MAGNESIUM HYDROXIDE SUSP 30 ML UDC PO PRN (10:30)
[2017-03-21] MEDS ORDERED: EPTIFIBATIDE BOLUS / DRIP IV ONE (10:30)
[2017-03-21] MEDS ORDERED: ALUMINUM/MAGNESIUM/SIMETH (MAALOX MAX) 30 ML UDC PO PRN (10:30)
[2017-03-21] MEDS ORDERED: ATROPINE SULFATE 0.1 MG/ML 5ML SYR IV PRN (10:30)
[2017-03-21] MEDS: SODIUM CHLORIDE 0.9% 1000ML 1,000 ML IV SCH ×3 (10:30→22:39)
[2017-03-21] MEDS ORDERED: LORAZEPAM INJ 0.5 MG in SYRINGE 0.75 ML IV PRN (10:30)
--- NOTE | 2017-03-21 10:33 | Procedure Note ---
Post-Mod Sedation Assessment General Date of Moderate Sedation Mar 21, 2017. Vital Signs: Vital Signs Past 12 Hours Date Time Temp Pulse Resp B/P (MAP) Pulse Ox O2 Delivery O2 Flow Rate FiO2 03/21/17 10:15 82 16 120/74 (89) 95 Room Air 03/21/17 10:10 Room Air 03/21/17 10:05 Room Air 03/21/17 10:00 86 16 126/74 (91) 96 Room Air 03/21/17 07:17 36.8 82 16 148/85 96 Room Air Review - Discharge Criteria Vital Signs Stable: Yes Alert/Oriented/Conversant: Yes Returned to Baseline Mental St: Yes Nausea Absent/Minimal: Yes Pain/Discomfort/Absent/Minimal: Yes Normal/Baseline Respirations: Yes Active Bleeding?: No Pt Received D/C Instructions: N/A Prescriptions Given: None Specific Proced. D/C Criteria Distal Pulses Present (Cardiac: Yes Groin site assessed-Card Cath: N/A Voided Prior To Discharge: N/A Discharged Patients Adult Escort/Transportation: N/A
[2017-03-21] MEDS: EPTIFIBATIDE INJ 75 MG PREMIXED IV SCH ×3 (11:15→22:44)
[2017-03-21] MEDS ORDERED: IV FLUIDS COMPLETED PRN (11:30)
[2017-03-21 11:46] LABS: BASO % 0.3 %; BASO ABS # 0.02 K/uL (0-0.2); EOS % 1.7 %; HEMATOCRIT 44.3 % (42-52); LYMPH % 24.7 %; LYMPH ABS # 1.56 K/uL (1.2-3.4); MEAN CELL VOLUME 88.1 fL (80-100); MEAN CORPUSCULAR HEMOGLOBIN 31.4 pg (25-34); MEAN PLATELET VOLUME 11.1 fL (7.4-10.4); MONO % 7.9 %; NEUT % 65.4 %; PLATELET COUNT 153 K/uL (130-400); RED BLOOD COUNT 5.03 M/uL (4.7-6.1); WHITE BLOOD COUNT 6.32 K/uL (4.8-10.8)
[2017-03-21 11:58] LABS: COMPLETE YES; MEAN CORPUSCULAR HGB CONC 35.7 g/dl (32-36)
--- NOTE | 2017-03-21 12:16 | Medical Consult ---
History General Date of Service: Mar 21, 2017. Stated Complaint: Cad, S/P Coronary Artery Stent Placement HPI The patient is a 71 year old male who presents to [facility] with complaints of Cad, S/P Coronary Artery Stent Placement. The patient's primary care provider is Rainer Fisher M.D.. The patient was seen post cardiac procedure where he had a stent applied to his left injured ascending artery due to unstable angina symptoms and an abnormal outpatient stress test. Patient recently was diagnosed diabetes but as an outpatient he has graduated to diet control with just metformin back up. The patient has had his metformin appropriately held by cardiology and will have diabetes coverage with insulin sliding scale Post procedure the patient is doing well has no complaints has no chest pain his wrist is without much tenderness his 's at the bedside Review of Systems ROS: well nourished well developed No double vision blurry vision No problems with speech or swallowing No palpitations, chest pain or pressure No Wheezing or breathing issues No abdominal pain nausea vomiting diarrhea changes in appetite or weight No burning urine urine frequency or changes in color No focal joint pain or muscle pain No skin rashes or oral lesions No unusual bruising or bleeding No focused back pain or numbness or loss of strength No changes in memory or confusion Family History Patient reports no known family medical history. Social History Hx Tobacco Use In Past Year?: No (USE TO CHEW tobacco. QUIT IN MARCH) Smoking Status: Never Smoker Marital status: Housing status: lives with family Occupational Status: retired Immunizations History of Influenza Vaccine: Yes Influenza Vaccine Date: May 28, 2012 History of Tetanus Vaccine?: UTD History of Pneumococcal: Yes Pneumococcal Date: May 12, 2011 History of Hepatitis B Vaccine: No History of MDRO History of MDRO: No Allergies Coded Allergies: No Known Allergies (Unverified , 07/08/16) Current Medications Reported Home Medications Medications Dose Route/Sig Max Daily Dose Days Date Category Vitamin C (Bioflavonoid Products) 1 Chw Chw 03/21/17 Reported Vitamin C (Vitamins C & E) 1 Cap Cap DIRECTED 03/21/17 Reported Vitamin B12 (Cyanocobalamin) 1,000 Mcg Tab 1 Tab PO DIRECTED 03/21/17 Reported Metoprolol Succinate ER (Metoprolol Succinate) 50 Mg Tabcr 50 Mg PO DAILY 03/21/17 Reported Flovent Diskus (Fluticasone Propionate (Inhala) 100 Mcg/Blist Aer 1 Puffs INH DAILY 03/21/17 Reported Lipitor (Atorvastatin Calcium) 20 Mg Tab 1 Tab PO HS 30 03/21/17 Reported Aspirin 81 Mg Chw 1 Tab PO DAILY 30 03/21/17 Reported Norvasc (Amlodipine Besylate) 5 Mg Tab 5 Mg PO DAILY 03/21/17 Reported Freestyle Lancets (Lancets) 1 Mis Mis 1 Ea TOP QID 90 09/26/16 Rx Metformin HCl 500 Mg Tab 500 Mg PO BIDM 30 09/26/16 Rx [place]-3 (Fish Oil) 1 Ea Cap 2 Cap PO QAM 07/08/16 Reported Vitamin D (Cholecalciferol) 1,000 Unit Tab 3,000 Unit PO QAM 07/08/16 Reported Hoa (Fexofenadine Hcl) 180 Mg Tab 180 Mg PO HS 04/23/12 Reported Physical Physical Exam Vital Signs: Date Time Temp Pulse Resp B/P (MAP) Pulse Ox O2 Delivery O2 Flow Rate FiO2 03/21/17 11:40 71 16 126/74 (91) 96 Room Air 03/21/17 11:25 72 16 125/78 (94) 94 Room Air 03/21/17 11:10 65 16 129/75 (93) 93 Room Air 03/21/17 10:55 63 16 113/68 (83) 94 Room Air 03/21/17 10:40 36.6 64 16 125/80 (95) 96 Room Air 03/21/17 10:15 82 16 120/74 (89) 95 Room Air 03/21/17 10:10 Room Air 03/21/17 10:05 Room Air 03/21/17 10:00 86 16 126/74 (91) 96 Room Air 03/21/17 07:17 36.8 82 16 148/85 96 Room Air General Appearance: WELL-APPEARING, NO APPARENT DISTRESS Head: NORMOCEPHALIC, ATRAUMATIC Eyes: PERRLA, EOMI Neck: NORMAL RANGE OF MOTION, SUPPLE Respiratory: BREATH SOUNDS NORMAL, CLEAR TO AUSCULTATION, CLEAR TO PERCUSSION Cardiovasular: REGULAR RATE/RHYTHM, NORMAL S1S2, NO MURMUR Abdomen: NON TENDER, NORMAL BOWEL SOUNDS, NO REBOUND, NO MASSES Upper Extremities: NO EDEMA, NO DEFORMITY, other (right radial cath site looks good distal sensation intact distal capillary refill intact) Lower Extremities: NO EDEMA, NO DEFORMITY, NORMAL ROM Neuro: ALERT, ORIENTED x 3, NORMAL MOTOR EXAM Psychiatric: NORMAL AFFECT, NO SUICIDAL IDEATION Diagnostics Labs Results Past 24 Hours Test 03/21/17 07:32 03/21/17 09:13 03/21/17 09:40 03/21/17 10:59 Range/Units White Blood Count 8.02 4.8-10.8 K/uL Red Blood Count 5.24 4.7-6.1 M/uL Hemoglobin 16.4 14.0-18.0 g/dL Hematocrit 46.0 42-52 % Mean Corpuscular Volume 87.8 80-100 fL Mean Corpuscular Hemoglobin 31.3 25-34 pg Mean Corpuscular Hemoglobin Concent 35.7 32-36 g/dl RDW Standard Deviation 46.0 36.4-46.3 fL RDW Coefficient of Variation 14.2 11.5-14.5 % Platelet Count 162 130-400 K/uL Mean Platelet Volume 11.1 7.4-10.4 fL Sodium Level 142 136-145 mmol/L Potassium Level 3.8 3.5-5.1 mmol/L Chloride Level 108 98-107 mmol/L Carbon Dioxide Level 29 21-32 mmol/L Anion Gap 5.0 3-11 mmol/L Blood Urea Nitrogen 20 7-18 mg/dl Creatinine 1.10 0.60-1.40 mg/dl Est Creatinine Clear Calc Drug Dose 64.7 ml/min Estimated GFR () 76.8 Estimated GFR (Non- 66.2 BUN/Creatinine Ratio 18.5 10-20 Random Glucose 98 70-99 mg/dl Calcium Level 8.9 8.5-10.1 mg/dl Kaolin Activated Coagulation Time 257 384 94-140 SECONDS Bedside Glucose 92 70-99 mg/dl Test 03/21/17 11:35 Range/Units White Blood Count 6.32 4.8-10.8 K/uL Red Blood Count 5.03 4.7-6.1 M/uL Hemoglobin 15.8 14.0-18.0 g/dL Hematocrit 44.3 42-52 % Mean Corpuscular Volume 88.1 80-100 fL Mean Corpuscular Hemoglobin 31.4 25-34 pg Mean Corpuscular Hemoglobin Concent 35.7 32-36 g/dl Platelet Count 153 130-400 K/uL Mean Platelet Volume 11.1 7.4-10.4 fL Neutrophils (%) (Auto) 65.4 % Lymphocytes (%) (Auto) 24.7 % Monocytes (%) (Auto) 7.9 % Eosinophils (%) (Auto) 1.7 % Basophils (%) (Auto) 0.3 % Neutrophils # (Auto) 4.13 1.4-6.5 K/uL Lymphocytes # (Auto) 1.56 1.2-3.4 K/uL Monocytes # (Auto) 0.50 0.11-0.59 K/uL Eosinophils # (Auto) 0.11 0-0.5 K/uL Basophils # (Auto) 0.02 0-0.2 K/uL RDW Standard Deviation 46.2 36.4-46.3 fL RDW Coefficient of Variation 14.2 11.5-14.5 % Immature Granulocyte % (Auto) 0.0 % Immature Granulocyte # (Auto) 0.00 0.00-0.02 K/uL Impression Assessment and Plan 71-year-old male status post LAD stenting Coronary disease patient is managed post procedure by Dr. Blackburn continuing aspirin Plavix metoprolol Integrilin. Patient prehospital was on Lipitor this will be maintained Regarding his diabetes metformin will be held for 48 hours due to intravenous contrast use sliding scale insulin will be used to control any blood glucoses over 180 Patient's history of asthma we controlled with his with when necessary Flovent however he is stable at this point in time DVT prevention is early ambulation
--- NOTE | 2017-03-21 12:38 | History & Physical Bridge Note ---
H&P Re-Evaluation Bridge Note: I have examined the patient, reviewed the History & Physical and in the interval since the performance of the History & Physical I have noted the following changes of clinical significance: The patient was seen and examined by me this morning prior to undergoing cardiac catheterization. Since December of this year he has been experiencing anginal symptoms. these have been progressively worsening. He now has anginal-type chest discomfort with walking only 10-20 feet. No rest anginal type symptoms. He underwent a stress echocardiogram yesterday which revealed evidence of ischemia in the LAD distribution. Cardiac catheterization indicated. The procedure, risks, benefits, alternatives of cardiac catheterization and percutaneous coronary intervention were extensively discussed with the patient by me. He agreed to the procedure. The catheterization was subsequently performed via a 6 [place] sheath in the right radial artery. This revealed a codominant circulation. There was a subtotal proximal LAD occlusion prior to the origin of a prominent LAD diagonal. TOÑO 1 flow to LAD. Right the left and left to right collateral flow. No significant disease in the left circumflex or right coronary arteries. With continued injections of the left coronary artery flow in the LAD improved. There appeared to be an ulcerated plaque at the site of severe occlusion. The patient had been given intravenous heparin prior to diagnostic angiography. Prior to PCI he received intravenous Integrilin. Therapeutic activated clotting time documented. there was great difficulty in accessing the LAD. It was ultimately access with a Whisper guidewire. He thereafter underwent PTCA to the LAD stenosis with a 2 millimeter diameter balloon. Then underwent deployment of a 2.75 x 26 millimeter Resolute Karlos stent. Residual stenosis at the stent site 0-10 percent. Step-up and step-down prior to and distal to stent respectively. TOÑO 3 flow in the LAD and all of its branches. No evidence of dissection, thrombus, perforation, or distal embolic event. 30 percent ostial LAD diagonal stenosis. Hemostasis obtained with application of a [employer] TR band. No complications with the procedure. He had no anginal-type complaints during or following the procedure. He was hemodynamically stable. No arrhythmias. Assessment: 1. Unstable anginal symptoms. 2. Subtotal proximal LAD occlusion. 3. Successful intervention to the LAD occlusion. 4. No coronary, vascular, cardiac complications evident thus far. 5. Radiation exposure was greater than 5000 mGy. The patient was advised of this. He is aware of the possible adverse effects of this. Also received greater than the recommended maximum contrast load. Received intravenous fluids overnight. Follow-up metabolic profiles will be obtained. Plan: 1. Observation status overnight. 2. Intravenous fluids overnight. 3. Intravenous Integrilin for 18 hours. .4. He was given 600 milligrams of oral clopidogrel post PCI. Should remain on dual antiplatelet therapy for least 1 year. Aspirin therapy indefinitely. 5. His atorvastatin dose will be increased to 80 milligrams. 6. Continue metoprolol. 7. Add JACQUELINE-inhibitor therapy to his medical regimen. 8. CBC post Integrilin. 9. Post PCI electrocardiograms. 10. Hospitalist consultation for management of diabetes.
--- NOTE | 2017-03-21 12:55 | Cardiac Catheterization ---
Procedure Note Procedure Date Mar 21, 2017. Pre-Procedure Diagnosis Acute Coronary Syndrome (Unstable angina), Positive Stress Test AUC Score 7 Post-Procedure Diagnosis Severe CAD, Successful PCI, Normal Intracardiac Pressures Procedure(s) Performed Coronary Angiography, Left Heart Cath, LV Angiography, PTCA, Drug Eluting Stent Planning Technician Dr. Beal Brim Edge Trimmer(s) Ramya Hicks, RTR Estimated Blood Loss 30 ml Medication(s) Clopidogrel (600 mg Post PCI), Fentanyl, Heparin, Integrilin, Nicardipine (Intra -arterial and intracoronary), Versed, Lidocaine 1% Summary of Findings Clinical indications: Unstable angina, stress echocardiogram positive for evidence of ischemia in the LAD distribution. CAD risk factors include hypertension, dyslipidemia, type 2 diabetes mellitus, and family history of coronary artery disease. Catheterization site: 6 Armenian slender glide sheath right radial artery. Diagnostic catheters: 5 Armenian TRAP and 5 Armenian JL 3.5 diagnostic catheters. Left heart cath performed with the TRAP catheter. Interventional equipment: 6 Armenian EBU 3.75 guide catheter,[place] and Whisper guidewires, Medtronic Sprinter 2 x 15 millimeter balloon dilatation catheter, Medtronic Resolute Karlos drug-eluting stent. Interventional protocol: Following the administration of intravenous heparin and Integrilin a therapeutic activated clotting time was documented. It was then attempted to pass the [place] guidewire across the severe proximal LAD stenosis. This wire would not cross the stenosis. It would continually passed into the LAD diagonal arising from the stenotic region. It was then left in the LAD diagonal. It was then attempted to cross the LAD stenosis with the Whisper guidewire. Initial attempts were unsuccessful. A secondary bend was placed in the wire. With this secondary bend the wire easily traversed the proximal LAD stenosis. Its tip was placed in the distal LAD. PTCA was then performed to the proximal LAD with the Sprinter balloon The stent was then deployed in the proximal LAD. Follow-up angiography was then performed from orthogonal projections with the guidewire in place and then guidewire withdrawn. Hemostasis: Terumo TR band. Complications: None. Findings: Fluoroscopy revealed coronary calcifications. The coronary circulation was codominant. The left main coronary artery was a very large caliber vessel without obstructive disease. It gave rise to large caliber left anterior descending and left circumflex coronary arteries. The LAD had a 99 percent proximal stenosis involving the origin of the 1st LAD diagonal artery. On initial angiography the diagonal had an ostial 95 percent stenosis. The diagonal had TOÑO 2 flow. The LAD itself had TOÑO 1 flow on initial angiography. On further LAD injections with the diagnostic catheter there was improved flow into the mid and distal LAD. There appeared to be an ulcerated plaque involving the origin of the 1st diagonal. Following PTCA to the proximal LAD There was TOÑO 3 flow into the distal LAD. The diagonal ostial stenosis improved. The stent was deployed from the proximal LAD into the mid LAD across the origin of the 1st diagonal. Following stent deployment the residual stenosis at the stent site was 0-10 percent. There was no evidence of dissection, thrombus, perforation, or distal embolic event.TOÑO 3 flow was present into the LAD and the LAD diagonal. Diagonal had a residual ostial and proximal 30 percent stenosis. Its mid segment had a 30 percent stenosis. The mid LAD had a 20 percent stenosis. Mid LAD gave rise to very small caliber 2nd diagonal artery. The distal LAD had mild luminal irregularities of 0-10 percent. It wraps around the apex of the heart as a small caliber vessel. The distal LAD supplied the distal inferior apical aspect of the left ventricle. The proximal left circumflex gave rise to very small caliber 1st marginal artery. The mid circumflex gave rise to a very large small caliber and short 2nd marginal artery. It then gave rise to a small caliber 3rd marginal artery. The distal circumflex gave rise to medium caliber 1st and 2nd posterolateral arteries. The 1st posterolateral had an ostial 30 percent stenosis and then a 30 percent proximal stenosis. The 2nd posterolateral had 0-10 percent proximal and mid segment stenoses. Right coronary was a medium caliber vessel. 20 percent proximal, mid, and distal segment stenoses. Distal RCA gave rise to a small caliber posterior descending artery which had diffuse mild atherosclerotic disease with 0-10 percent luminal diameter narrowing. The PDA supplied [id number] collateral flow to the LAD. The distal PDA gave rise to a collateral to the distal LAD. PDA septal perforators supplied collateral flow to the proximal, mid, and distal LAD. Conclusions: Subtotal proximal LAD occlusion. Successful PCI to the LAD occlusion with deployment of a drug-eluting stent. The patient was hemodynamically and electrically stable throughout the procedure. He had no complaints of chest pain during or following the procedure. Plan: The patient was given a loading dose of oral clopidogrel 600 milligrams post PCI. He was to remain on intravenous Integrilin for 18 hours post PCI. Serial labs and electrocardiograms were ordered. Will be treated with antiplatelet, statin, beta-dominick, and JACQUELINE-inhibitor therapy. He will have cardiology follow-up in the [facility]. The patient received greater than 5000 mGy of radiation exposure. He was advised of this. He was made aware to monitor himself for any 6 signs or symptoms of the radiation exposure. He also received greater than 300 milliliters of contrast dye. He will have a follow-up assessment of renal function 5 days post PCI. He did receive intravenous fluids post PCI and during the procedure. Hemodynamics Rest Ao: 114/51/77 mm Hg Final Ao: 120/64/87 mm Hg LV: 128/10 mm Hg Recommendations Medical therapy and/or Counseling, PCI without planned CABG Specimens None Radiation Exposure (mGy) 5306 Contrast (mls) 340 ml Visipaque Fluids (cc crystalloids) 200 Anesthesia None Procedural Complication(s) None Disposition PCU ACC Data Cardiac Status Clinical evaluation leading to the procedure CAD Presntation: Unstable angina, Positive Stress Test Anginal Classification: CCS III Heart Failure: No Cardiogenic Shock w/in 24Hrs: No Cardiac Arrest w/in 24Hrs: No Imaging studies past 6 months: Yes Stress studies past 6 months: Yes Standard Exercise Stress Test: No Stress Echocardiogram: Yes - Positive, Risk/Extent of Ischemia (High) Stress Testing w/SPECT MPI: No Cardiac CTA: No Coronary Anatomy Dominant: Co-dominant Left Main (% Stenosis): Normal LAD (% Stenosis): Proximal (99), Mid (20), Distal (0-10) D1 (% Stenosis): Ostial (30) D2 (% Stenosis): Normal Circumflex (% Stenosis): Normal OM1 (% Stenosis): Normal OM2 (% Stenosis): Normal OM3 (% Stenosis): Normal L PL1 (% Stenosis): Ostial (30), Proximal (30) L PL2 (% Stenosis): Proximal (0-10), Mid (0-10) RCA (% Stenosis): Proximal (20), Mid (20), Distal (20) R PDA (% Stenosis): Proximal (0-10), Mid (0-10) Left Ventricular Angiography EF (%): NA Diagnostic Physician's Name: Richard Beal M.D. Status: Elective Closure Device Percutaneous Entry Location: Radial Closure Device: Radial Band Recommendations: Medical therapy and/or Counseling, PCI without planned CABG PCI Indication: Unstable Angina, + Stress Test Lesion Segment Name: Proximal LAD Culprit Artery: Yes Stenosis Prior to Rx (%): 99 Chronic Total Occlusion: No IVUS: No FFR: No Ratio: less than or equal to 0.75% Pre-Procedure TOÑO Flow: 1 Previously Treated Lesion: No Lesion Complexity: High/C Lesion Length (mm): 20 Thrombus Present: Yes Bifurcation Lesion: Yes Guidewire Across Lesion: Yes Guidewire: Stenosis Post-Procedure (%): 0 Post-Procedure TOÑO Flow: 3 Device(s) Deployed: Yes Type of Device(s): Medtronic Resolute Wallace 2.75 X 26 mm RENETTA Intraprocedure Events Significant Dissection: No Perforation: No
[2017-03-21] MEDS: ACETAMINOPHEN 325 MG TAB PO PRN ×2 (13:11→19:19)
[2017-03-21] MEDS: INSULIN ASPART 100 UNITS/ML 3 ML PEN SC SCH ×2 (16:15→20:42)
[2017-03-21] MEDS ORDERED: FEXOFENADINE HCL 180 MG TAB PO SCH (21:00)
[2017-03-21] MEDS ORDERED: ATORVASTATIN 40 MG TAB PO SCH (21:00)
[2017-03-22 03:44] VITALS: BP 114/69; PULSE 58; TEMP 36.9; O2SAT 96
[2017-03-22] MEDS ORDERED: Integrelin infusion --> STOP ORDER ONE (04:00)
[2017-03-22 06:15] LABS: BASO % 0.3 %; BASO ABS # 0.02 K/uL (0-0.2); COMPLETE YES; EOS % 2.2 %; HEMATOCRIT 42.4 % (42-52); IG% 0.3 %; LYMPH % 19.9 %; LYMPH ABS # 1.42 K/uL (1.2-3.4); MEAN CELL VOLUME 89.6 fL (80-100); MEAN CORPUSCULAR HEMOGLOBIN 30.4 pg (25-34); MONO % 9.3 %; PLATELET COUNT 149 K/uL (130-400); RED BLOOD COUNT 4.73 M/uL (4.7-6.1); WHITE BLOOD COUNT 7.13 K/uL (4.8-10.8)
[2017-03-22] MEDS: SODIUM CHLORIDE 0.9% 1000ML 1,000 ML IV SCH (06:22)
[2017-03-22] MEDS: INSULIN ASPART 100 UNITS/ML 3 ML PEN SC SCH ×2 (06:22→11:00)
[2017-03-22 06:52] LABS: BUN/CREATININE RATIO 12.2 (10-20); CALCIUM 7.9 mg/dl (8.5-10.1); CREATININE 0.85 mg/dl (0.60-1.40); POTASSIUM 3.9 mmol/L (3.5-5.1)
[2017-03-22 07:36] VITALS: BP 115/74; PULSE 65; TEMP 37; O2SAT 96
[2017-03-22] MEDS ORDERED: LISINOPRIL 5 MG TAB PO SCH (09:00)
[2017-03-22] MEDS ORDERED: AMLODIPINE BESYLATE 5 MG TAB PO SCH (09:00)
[2017-03-22] MEDS ORDERED: FLUTICASONE HFA 110MCG INHALER INH SCH (09:00)
[2017-03-22] MEDS ORDERED: ASPIRIN 324 MG CHEW PO SCH (09:00)
[2017-03-22] MEDS ORDERED: ASPIRIN 81 MG ECTAB PO SCH (09:00)
[2017-03-22] MEDS ORDERED: METOPROLOL SUCC 50MG EXT REL TAB PO SCH (09:00)
[2017-03-22] MEDS ORDERED: CYANOCOBALAMIN 500 MCG TAB (VIT B-12) PO SCH (09:00)
[2017-03-22] MEDS ORDERED: CLOPIDOGREL BISULFATE 75 MG TAB PO SCH (09:00)
--- NOTE | 2017-03-22 10:23 | Progress Note ---
Subjective Date of Service: Mar 22, 2017. Subjective Pt evaluation today including: conversation w/ patient, conversation w/ family , physical exam, chart review, lab review, review of studies, review of inpatient medication list Resting comfortably in bed No events overnight at bedside Problem List Medical Problems: (1) INDERJIT (acute kidney injury) Status: Acute (2) Dehydration Status: Acute (3) Hyperglycemia Status: Acute (4) Hypertension Status: Acute Review of Systems Constitutional: No fever, No chills, No sweats, No weight loss, No weakness ENT: No hearing loss, No unusual epistaxis, No nasal symptoms, No sore throat Respiratory: No cough, No sputum, No wheezing, No shortness of breath Cardiac: No chest pain, No orthopnea, No PND, No edema Abdomen: No pain, No nausea, No vomiting, No diarrhea, No constipation Musculoskeletal: No joint pain, No muscle pain, No swelling, No calf pain Male : No dysuria, No urinary frequency, No incontinence, No slowing stream Neurologic: No memory loss, No paralysis, No weakness, No numbness/tingling Psychiatric: No depression symptoms, No anhedonism, No anxiety, No insomnia Skin: No rash, No itch Objective Vital Signs Date Time Temp Pulse Resp B/P (MAP) Pulse Ox O2 Delivery O2 Flow Rate FiO2 03/22/17 08:00 Room Air 03/22/17 07:36 37.0 65 18 115/74 (88) 96 03/22/17 04:00 Room Air 03/22/17 03:44 36.9 58 18 114/69 (84) 96 Room Air 03/21/17 23:59 Room Air 03/21/17 22:47 36.6 75 18 117/66 (83) 94 Room Air 03/21/17 20:00 Room Air 03/21/17 19:26 36.4 61 20 126/78 (94) 95 Room Air 03/21/17 16:38 60 16 143/83 (103) 94 Room Air 03/21/17 16:00 Room Air 03/21/17 15:38 58 16 123/72 (89) 95 Room Air 03/21/17 15:29 36.5 62 20 119/72 (88) 97 Room Air 03/21/17 14:40 68 16 137/77 (97) 95 Room Air 03/21/17 13:40 71 16 130/79 (96) 96 Room Air 03/21/17 12:40 73 16 123/70 (87) 96 Room Air 03/21/17 12:10 68 16 117/68 (84) 96 Room Air 03/21/17 11:53 Room Air 03/21/17 11:40 71 16 126/74 (91) 96 Room Air 03/21/17 11:25 72 16 125/78 (94) 94 Room Air 03/21/17 11:10 65 16 129/75 (93) 93 Room Air 03/21/17 10:55 63 16 113/68 (83) 94 Room Air 03/21/17 10:40 36.6 64 16 125/80 (95) 96 Room Air Physical Exam General Appearance: WD/WN, no apparent distress Neck: supple, no adenopathy, thyroid normal, no JVD Respiratory/Chest: chest non-tender, lungs clear, normal breath sounds, no respiratory distress Cardiovascular: regular rate, rhythm, no edema, no gallop Abdomen: normal bowel sounds, non tender, soft, no organomegaly Extremities: normal range of motion, non-tender, normal inspection, no pedal edema Neurologic/Psychiatric: no motor/sensory deficits, alert, normal mood/affect, oriented x 3 Laboratory Results Last 24 Hours Test 03/21/17 10:59 03/21/17 11:35 03/21/17 16:26 03/21/17 20:27 Bedside Glucose 92 mg/dl 154 mg/dl 93 mg/dl White Blood Count 6.32 K/uL Red Blood Count 5.03 M/uL Hemoglobin 15.8 g/dL Hematocrit 44.3 % Mean Corpuscular Volume 88.1 fL Mean Corpuscular Hemoglobin 31.4 pg Mean Corpuscular Hemoglobin Concent 35.7 g/dl Platelet Count 153 K/uL Mean Platelet Volume 11.1 fL Neutrophils (%) (Auto) 65.4 % Lymphocytes (%) (Auto) 24.7 % Monocytes (%) (Auto) 7.9 % Eosinophils (%) (Auto) 1.7 % Basophils (%) (Auto) 0.3 % Neutrophils # (Auto) 4.13 K/uL Lymphocytes # (Auto) 1.56 K/uL Monocytes # (Auto) 0.50 K/uL Eosinophils # (Auto) 0.11 K/uL Basophils # (Auto) 0.02 K/uL RDW Standard Deviation 46.2 fL RDW Coefficient of Variation 14.2 % Immature Granulocyte % (Auto) 0.0 % Immature Granulocyte # (Auto) 0.00 K/uL Test 03/22/17 05:47 03/22/17 06:21 White Blood Count 7.13 K/uL Red Blood Count 4.73 M/uL Hemoglobin 14.4 g/dL Hematocrit 42.4 % Mean Corpuscular Volume 89.6 fL Mean Corpuscular Hemoglobin 30.4 pg Mean Corpuscular Hemoglobin Concent 34.0 g/dl Platelet Count 149 K/uL Mean Platelet Volume 11.0 fL Neutrophils (%) (Auto) 68.0 % Lymphocytes (%) (Auto) 19.9 % Monocytes (%) (Auto) 9.3 % Eosinophils (%) (Auto) 2.2 % Basophils (%) (Auto) 0.3 % Neutrophils # (Auto) 4.85 K/uL Lymphocytes # (Auto) 1.42 K/uL Monocytes # (Auto) 0.66 K/uL Eosinophils # (Auto) 0.16 K/uL Basophils # (Auto) 0.02 K/uL RDW Standard Deviation 47.0 fL RDW Coefficient of Variation 14.3 % Immature Granulocyte % (Auto) 0.3 % Immature Granulocyte # (Auto) 0.02 K/uL Sodium Level 143 mmol/L Potassium Level 3.9 mmol/L Chloride Level 112 mmol/L Carbon Dioxide Level 28 mmol/L Anion Gap 3.0 mmol/L Blood Urea Nitrogen 10 mg/dl Creatinine 0.85 mg/dl Est Creatinine Clear Calc Drug Dose 83.8 ml/min Estimated GFR () 100.2 Estimated GFR (Non- 86.4 BUN/Creatinine Ratio 12.2 Random Glucose 95 mg/dl Calcium Level 7.9 mg/dl Bedside Glucose 107 mg/dl Assessment and Plan 71-year-old male status post LAD stenting Coronary disease patient is managed post procedure by Dr. Blackburn continuing aspirin Plavix metoprolol Integrilin. Patient prehospital was on Lipitor this will be maintained Vitals stable at this time Regarding his diabetes metformin will be held for 48 hours due to intravenous contrast use sliding scale insulin will be used to control any blood glucoses over 180. Can discharge back on metformin, renal fxn stable Patient's history of asthma we controlled with his with when necessary Flovent however he is stable at this point in time DVT prevention is early ambulation
[2017-03-22] MEDS ORDERED: PLV75 PO (11:14)
[2017-03-22] MEDS ORDERED: LPT40 PO (11:14)
[2017-03-22] MEDS ORDERED: NTRSLP4 SL (11:14)
[2017-03-22] MEDS ORDERED: LSN5 PO (11:14)
--- NOTE | 2017-03-22 11:21 | Discharge Instructions ---
Discharge Instructions Procedure Procedure Date: Mar 22, 2017. Reason for Visit: Cad, S/P Coronary Artery Stent Placement. Discharge Discharge Date: Mar 22, 2017. Discharge Diagnosis: Coronary artery stent. Severe LAD stenosis. Last Recorded Wt (Kilograms): 88.900 Anesthesia Post Anesthesia Instructions: If you have had General Anesthesia or IV Sedation: * Do not drive today. * Resume driving when surgeon permits. * Do not make important decisions or sign legal documents today. * Call surgeon for: 1. Temperature elevations greater than 101 degrees F. 2. Uncontrollable pain. 3. Excessive bleeding. 4. Persistent nausea and vomiting. 5. Medication intolerance (nausea, vomiting or rash). * For nausea and vomiting use only clear liquids such as: tea, soda, bouillon until nausea subsides, then gradually increase diet as tolerated. * If you have any concerns or questions, call your surgeon's office. If physician is unavailable and it is an emergency, call 911 or go to the nearest emergency room. Instructions Activity Recommendations: lifting limitation (No lifting over 2 pounds till ), limitations (No strenuous exertion for 2 days) Recommended Home Diet: low cholesterol, diabetes diet Allergies: Coded Allergies: No Known Allergies (Unverified , 07/08/16) Provider Instructions Don't restart metformin until 03/24/17. Take medicines every day. Call 911 for any chest pain lasting longer than 5 minutes. Call [facility] at [phone] for any questions or problems. Get blood drawn next week to check on kidney function. Go to lab at office. Watch for any redness on skin from radiation given during the procedure. Follow Up Follow-up with: A follow up with Ms. Ailyn Lora will be arranged. [facility] Recommendations: Call your doctor if: * Temperature above 101 degrees * Pain not relieved by pain medicine ordered * There is increased drainage or redness from any incision * You have any unanswered questions or concerns. Your Doctors Instructions noted above were prepared by provider Richard Beal. Patient Signature Section: Patient Instructions Signature Page Colt Hanna Patient (or Guardian) Signature/Date: I have read and understand the instructions given to me by my caregivers. Caregiver/RN/Doctor Signature/Date: The above-named patient and/or guardian has received patient instructions on this date. + Original Patient Signature Page (only) stays with chart. Please make copy for patient.
[2017-03-22] MEDS: ACETAMINOPHEN 325 MG TAB PO PRN (11:24)
[2017-03-22 11:31] VITALS: BP 115/74; PULSE 65; TEMP 37; O2SAT 96
--- NOTE | 2017-03-22 14:35 | DISCHARGE SUMMARY ---
DISCHARGE DIAGNOSES: 1. Coronary artery disease, status post elective cardiac catheterization, 03/21/2017. Performed for worsening anginal symptoms and positive stress echocardiogram. The stress echo had revealed evidence of LAD ischemia. Catheterization revealed a subtotal proximal LAD occlusion. Left and right to left collaterals to the LAD. Subsequent successful intervention to the LAD stenosis with PTCA followed by deployment of a 2.75 x 26 mm Resolute drug-eluting stent. 0-10% residual stenosis. No evidence of dissection, thrombus, perforation, distal embolic event. TOÑO 1 flow prior to intervention. TOÑO 3 flow post-intervention. 2. No post-PCI cardiac, coronary, or vascular complications. Procedure performed via a 6-Spanish sheath, right radial artery. 3. Coronary artery disease risk factors include hypertension, dyslipidemia, and type 2 diabetes mellitus. DISCHARGE MEDICATIONS: Aspirin 81 mg daily, clopidogrel 75 mg daily, lisinopril 2.5 mg daily, amlodipine 5 mg daily, metoprolol succinate ER 50 mg daily, vitamin B12 1000 mcg daily, fluticasone 1 puff daily as needed, atorvastatin 80 mg at bedtime, fexofenadine 180 mg at bedtime, nitroglycerin 0.4 mg sublingual p.r.n. chest pain, fish oil 1 capsule daily, vitamin C and E daily, vitamin D 1000 units daily, metformin 500 mg b.i.d. (not be restarted until 03/24/2017. DISCHARGE CONDITION: Good. DISCHARGE ACTIVITY: No lifting over 2 pounds for 48 hours. No strenuous exertion until 03/24/2017. DISCHARGE DIET: Low fat, low sodium, diabetic diet. DISCHARGE FOLLOW UP: The patient will have follow up with [facility] at week of 03/24/2017. DISCHARGE INSTRUCTIONS: The patient was instructed to take his medications on a daily basis without interruption. The need to take aspirin and clopidogrel on a daily basis without interruption was stressed with the patient by me. He is not to stop these medications without permission of his master lay out specialist. He was instructed to call 911 immediately for any chest discomfort lasting more than 5 minutes. He was asked to call the [facility] office for any questions or problems. HISTORY AND HOSPITAL COURSE: The patient has type 2 diabetes mellitus, hypertension, dyslipidemia. Since December 2016, he has been experiencing anginal symptoms with exertion. These symptoms have progressively worsened. In the past few weeks, he has had anginal chest pressure after any walking 20-30 feet. A recent stress echocardiogram revealed evidence of anterior wall myocardial ischemia. He underwent elective cardiac catheterization on 03/21/2017. This revealed a codominant circulation. There was a subtotal proximal LAD occlusion. On initial angiography, TOÑO 1 flow in the LAD. Left to left and right to left collateral flow. There was a severe stenosis in an LAD diagonal arising from the LAD stenotic region. There was TOÑO 2 flow in this vessel. The left circumflex and right coronary arteries had only mild atherosclerotic disease. PTCA was then performed to the LAD occlusion. A 2.75 x 26 mm Resolute drug-eluting stent was then deployed in the proximal to early mid LAD. This was over the origin of the diagonal. Post-procedure, the residual stenosis at the stent site was 0-10%. The diagonal had an ostial 30% stenosis. TOÑO 3 flow in the diagonal and LAD. The LAD wrapped around the apex of the heart. There was no evidence of dissection, thrombus, perforation, or distal embolic event. The patient was hemodynamically and electrically stable throughout the procedure. Hemostasis was obtained with a Teromu TR band. The patient had been treated with heparin and Integrilin during the procedure. He remained on intravenous Integrilin for 18 hours post procedure. He was given a loading dose of clopidogrel 600 mg in the clinical laboratory aide post-PCI. The patient was admitted for observation overnight in telemetry unit. Since the intervention, he has had no cardiac symptoms. Specifically, no anginal symptoms with activities. No pain at his right radial catheterization site. PHYSICAL EXAMINATION: VITAL SIGNS: Exam on 03/22/2017 revealed oral temperature 37.0, pulse 65, blood pressure 115/74, and pulse oximetry 96%. GENERAL APPEARANCE: Showed him to be in no distress. NECK: No jugular venous distention. LUNGS: Normal respiratory effort. Clear. No rales or wheezes. HEART: Regular rate and rhythm. S1, S2 normal. No S3 or S4. A 2/6 systolic murmur in second intercostal space and left lower sternal border. No diastolic murmur or rub. ABDOMEN: Soft. Nontender. No palpable masses or organomegaly. No bruits. EXTREMITIES: Right radial catheterization site without bleeding or tenderness. Right radial pulse strongly palpable. No arterial insufficiency in right hand. No pretibial edema. No calf tenderness. NEUROLOGIC: Alert and oriented x3. Motor grossly intact. PSYCHIATRIC: Affect normal. Electrocardiogram performed post-PCI revealed normal sinus rhythm, T-wave inversions in aVL, V2-V4. Biphasic T waves in V5 and V6. Electrocardiogram on 03/12/2017 with T-wave inversions in V1-V6. More prominent than those on 03/21/2017. Labs on 03/22/2017; WBC 7.13, hemoglobin 14.4, hematocrit 42.4, and platelet count 149. Sodium 143, potassium 3.9, chloride 112, carbon dioxide 28, BUN 10, creatinine 0.85, and random glucose 95. DISCHARGE PLAN: The patient is being discharged home. Outpatient followup with [facility]. Instructions to take his medicines on a daily basis without interruption. Instructed to call 911 immediately for any sustained chest pain lasting longer than 5 minutes. The patient will have a metabolic profile obtained at the week of 03/24/2017. He received greater than 300 mL of contrast dye during the procedure. He received greater than 5000 milligrays of radiation exposure during the procedure on 03/21/2017. He was advised of this. He was given instructions to monitor himself for any skin changes related to the radiation exposure. Over 30 minutes was spent by me today in discharge management of this patient. PRABHA
== END 2017-03-22 12:30 | disposition home or self-care (01) ==
LOC: C.CATH 07:00 → ENRESERV 10:07 → C.2T 10:29
PROVIDERS: ADMIT Internal Medicine Cardiovascular Disease; ATTEND Internal Medicine Cardiovascular Disease
DX: I25.10 Atherosclerotic heart disease of native coronary artery without angina pectoris (principal); I10 Essential (primary) hypertension; E78.5 Hyperlipidemia, unspecified; E11.9 Type 2 diabetes mellitus without complications; Z79.82 Long term (current) use of aspirin

== ENCOUNTER → 2017-03-27 | Outpatient (CLI) | payer BC ==
[~2017-03-27] MED LIST changes: +AMLO-110 PO; +ASPI81CH2 PO; +BIOF500C2; +CYAN100020 PO; +FLUT1AER5 INH; -GLUCTAB18 PO; -HYDR25TA5 PO; -INSDGIPEN SC; -LPD600 PO; +LPT40 PO; +LSN5 PO; +NTRSLP4 SL; -NVLGIPEN SC; +PLV75 PO; +TPRSR/50 PO; +VITACAP26
[2017-03-27 10:39] LABS: BLOOD UREA NITROGEN 14 mg/dl (7-18); BUN/CREATININE RATIO 14.5 (10-20); CALCIUM 8.7 mg/dl (8.5-10.1); CARBON DIOXIDE 27 mmol/L (21-32); CHLORIDE 104 mmol/L (98-107); CREATININE 0.97 mg/dl (0.60-1.40); GLUCOSE 89 mg/dl (70-99); SODIUM 139 mmol/L (136-145)
== END | disposition home or self-care (01) ==
LOC: C.LAB1850 08:51
PROVIDERS: ATTEND Internal Medicine Cardiovascular Disease
DX: I10 Essential (primary) hypertension (principal); E11.9 Type 2 diabetes mellitus without complications; I25.10 Atherosclerotic heart disease of native coronary artery without angina pectoris

== ENCOUNTER → 2017-05-05 | Outpatient (CLI) | payer BC ==
[2017-05-05 11:27] LABS: ALT/SGPT 30 U/L (12-78); AST/SGOT 18 U/L (15-37); BLOOD UREA NITROGEN 18 mg/dl (7-18); BUN/CREATININE RATIO 18.4 (10-20); CALCIUM 8.6 mg/dl (8.5-10.1); CARBON DIOXIDE 30 mmol/L (21-32); CHLORIDE 108 mmol/L (98-107); CREATININE 0.97 mg/dl (0.60-1.40); GLUCOSE 93 mg/dl (70-99); POTASSIUM 4.4 mmol/L (3.5-5.1); SODIUM 144 mmol/L (136-145)
[2017-05-05 11:31] LABS: CHOLESTEROL 127 mg/dl (0-200); CHOLESTEROL/HDL RATIO 2.5; HDL CHOLESTEROL 50 mg/dl; LDL CHOLESTEROL CALCULATED 52 mg/dl; TRIGLYCERIDES 123 mg/dl (0-150); VERY LOW DENSITY LIPOPROT CALC 25 mg/dl
== END | disposition home or self-care (01) ==
LOC: C.LAB1850 10:03
PROVIDERS: ATTEND Internal Medicine
DX: E78.5 Hyperlipidemia, unspecified (principal); E11.9 Type 2 diabetes mellitus without complications

== ENCOUNTER → 2017-07-10 | Outpatient (CLI) | payer BC ==
[~2017-07-10] VITALS: Ht 174 cm; Wt 88.9 kg
[2017-07-10 13:37] VITALS: BP 114/69; PULSE 51; Ht 174 cm; Wt 88.9 kg
== END | disposition home or self-care (01) ==
LOC: C.NEUR 13:20
PROVIDERS: ATTEND Physician Assistant
DX: G47.30 Sleep apnea, unspecified (principal); G47.61 Periodic limb movement disorder; I10 Essential (primary) hypertension; E11.9 Type 2 diabetes mellitus without complications; E66.9 Obesity, unspecified; Z68.29 Body mass index [BMI] 29.0-29.9, adult

== ENCOUNTER → 2017-10-09 | Outpatient (CLI) | payer BC ==
[~2017-10-09] VITALS: Ht 172.7 cm; Wt 92.0 kg
[2017-10-09 14:43] VITALS: BP 110/57; PULSE 52; Ht 172.7 cm; Wt 92.0 kg
== END | disposition home or self-care (01) ==
LOC: C.NEUR 13:40
PROVIDERS: ATTEND Physician Assistant
DX: G47.30 Sleep apnea, unspecified (principal)

== ENCOUNTER → 2017-12-23 | Outpatient (CLI) | payer BC ==
[2017-12-23 10:17] LABS: ALT/SGPT 25 U/L (12-78); AST/SGOT 15 U/L (15-37); BLOOD UREA NITROGEN 17 mg/dl (7-18); CALCIUM 8.9 mg/dl (8.5-10.1); CARBON DIOXIDE 32 mmol/L (21-32); CHOLESTEROL 151 mg/dl (0-200); CREATININE 1.12 mg/dl (0.60-1.40); GLUCOSE 108 mg/dl (70-99); LDL CHOLESTEROL CALCULATED 55 mg/dl; POTASSIUM 4.1 mmol/L (3.5-5.1); SODIUM 140 mmol/L (136-145)
[2017-12-23 10:23] LABS: CREATININE RANDOM URINE 40.6 mg/dl
[2017-12-23 10:30] LABS: HEMOGLOBIN A1C 5.5 % (4.5-5.6)
== END | disposition home or self-care (01) ==
LOC: C.LAB1850 08:53
PROVIDERS: ATTEND Internal Medicine
DX: E11.9 Type 2 diabetes mellitus without complications (principal); E78.5 Hyperlipidemia, unspecified; I10 Essential (primary) hypertension